=== PATIENT | female | born 1940 | race Caucasian/White ===

== ENCOUNTER 2020-01-07 18:52 | Inpatient (IN) | payer MEDICARE, BC ==
[2020-01-07] MEDS ORDERED: FLUMAZENIL INJ 0.5 MG/5 ML VIAL IV ONE (18:59)
[2020-01-07] MEDS ORDERED: ACTIVATED CHARCOAL 25 GM BOTTLE NG ONE (19:02)
[2020-01-07] MEDS ORDERED: RINGERS SOLUTION,LACTATED 1,000 ML IV PRN (19:05)
--- NOTE | 2020-01-07 19:12 | ER Document Report ---
ED General - General Chief Complaint: Overdose Stated Complaint: POSSIBLE OD Time Seen by Provider: 01/07/20 19:05 Primary Care Provider: WESLEY WRIGHT MD [Primary Care Provider] - Follow up as needed Mode of Arrival: Medic Information source: Patient, Emergency Med Personnel Notes: 79-year-old female arrives by EMS after she took all 60 tablets 1 mg of her lorazepam that was filled yesterday. She left a note that said I am out of your way to her Bin. Bin her reported to EMS that he was out of the house for 1-1/2 hours and when he came back he found her on the floor. Patient when asked advises that she did not know why she took so many pills. She was given Romazicon upon arrival 0.5 which caused her very somnolent state too quickly awakened to where she could talk to us and tell us her name and her 's name. She actually took her gown and pulled it with her right hand to over her chest. Patient saturations were found to be in the mid 80s per EMS upon their arrival. Her blood pressure was low per EMS and therefore she was not intubated according to EMS staff.. Prior to arrival. Rafa BARBER gave Romazicon IV and other staff members including respiratory secured this patient. Patient had NG tube placed. Behavioral health psychiatric to be consulted after admission. Also poison control needs to be called about this patient. Patient has a prior history of Xanax overdose in 2013 TRAVEL OUTSIDE OF THE [place] IN LAST 30 DAYS: No - HPI Onset: Just prior to arrival Onset/Duration: Sudden Quality of pain: No pain Severity: None Pain Level: Denies Associated symptoms: None Exacerbated by: Denies Relieved by: Denies Similar symptoms previously: No Recently seen / treated by doctor: Yes - Related Data Allergies/Adverse Reactions: erythromycin base Allergy (Mild, Verified 02/05/16 13:54) rash Penicillins Allergy (Mild, Verified 02/05/16 13:54) rash Sulfa (Sulfonamide Antibiotics) Allergy (Mild, Verified 02/05/16 13:54) rash Past Medical History - General Information source: Emergency Med Personnel - Social History Smoking Status: Unknown if Ever Smoked Cigarette use (# per day): No Chew tobacco use (# tins/day): No Smoking Education Provided: No Frequency of alcohol use: unknown Drug Abuse: Prescription drugs Lives with: Family Family History: Reviewed & Not Pertinent, Other - Unobtainable Patient has suicidal ideation: Yes Patient has homicidal ideation: No - Past Medical History Cardiac Medical History: Reports: Hx Hypertension Denies: Hx Atrial Fibrillation, Hx Congestive Heart Failure, Hx Coronary Artery Disease, Hx DVT, Hx Heart Attack, Hx Hypercholesterolemia, Hx Peripheral Vascular Disease, Hx Pulmonary Embolism Pulmonary Medical History: Denies: Hx Asthma Neurological Medical History: Denies: Hx Cerebrovascular Accident, Hx Seizures Endocrine Medical History: Denies: Hx Diabetes Mellitus Type 1, Hx Diabetes Mellitus Type 2, Hx Graves' Disease, Hx Hyperthyroidism, Hx Hypothyroidism GI Medical History: Denies: Hx Cirrhosis, Hx Crohn's Disease, Hx Diverticulitis, Hx Gastritis, Hx Gastroesophageal Reflux Disease, Hx Hepatitis, Hx Hiatal Hernia, Hx Irritable Bowel, Hx Liver Failure, Hx Ulcer, Hx Ulcerative Colitis Psychiatric Medical History: Reports: Hx Depression Infectious Medical History: Denies: Hx Hepatitis Past Surgical History: Reports: Hx Hysterectomy. Denies: Hx Mastectomy, Hx Open Heart Surgery, Hx Pacemaker - Immunizations Hx Pneumococcal Vaccination: 06/15/14 Review of Systems - Review of Systems Constitutional: No symptoms reported EENT: No symptoms reported Cardiovascular: No symptoms reported Respiratory: See HPI, Other - Patient appeared to have no respiratory distress upon arrival Gastrointestinal: No symptoms reported Genitourinary: No symptoms reported Female Genitourinary: No symptoms reported Musculoskeletal: No symptoms reported Skin: No symptoms reported Hematologic/Lymphatic: No symptoms reported Neurological/Psychological: See HPI, Confusion, Suicidal ideation Physical Exam - Vital signs Vitals: Resp 01/07/20 18:54 Interpretation: Normal - General General appearance: Lethargic - HEENT Head: Normocephalic, Atraumatic Eyes: Normal Pupils: PERRL Pharynx: Normal, Other - Patient open-mouth upon a command as she was getting NG tube. Neck: Normal - Respiratory Respiratory status: Depressed respirations Chest status: Nontender Breath sounds: Normal Chest palpation: Normal - Cardiovascular Rhythm: Regular Heart sounds: Normal auscultation Murmur: No - Abdominal Inspection: Normal Distension: No distension Bowel sounds: Normal Tenderness: Nontender Organomegaly: No organomegaly - Rectal Tenderness: No - Genitourinary External exam: Normal, Other - In trauma room with female nursing staff - Back Back: Normal - Extremities General upper extremity: Normal inspection, Nontender, Normal color, Normal ROM, Normal temperature General lower extremity: Normal inspection, Nontender, Normal color, Normal ROM, Normal temperature, Normal weight bearing. No: Niko's sign - Neurological Neuro grossly intact: Yes Cognition: Confused Cynthia Coma Scale Eye Opening: To Voice Cynthia Coma Scale Verbal: Confused Cynthia Coma Scale Motor: Obeys Commands Rowlett Coma Scale Total: 13 Speech: Normal Cranial nerves: Normal Cerebellar coordination: Normal Motor strength normal: LUE, RUE, LLE, RLE - Psychological Associated symptoms: Flat affect - Skin Skin Temperature: Warm Skin Moisture: Moist Course - Vital Signs Vital signs: Temp Pulse Resp BP Pulse Ox 18 127/61 H 97 01/07/20 19:20 01/07/20 19:20 01/07/20 19:20 - Laboratory Result Diagrams: 01/07/20 18:58 01/07/20 18:58 Laboratory results interpreted by me: 01/07/20 01/07/20 18:58 18:58 Hgb 11.1 L Hct 32.9 L BUN 27 H Alkaline Phosphatase 37 L Total Protein 5.8 L Albumin 3.4 L Salicylates < 1.0 L Acetaminophen < 10 L Critical Care Note - Critical Care Note Total time excluding time spent on procedures (mins): 90 Comments: I spoke with JAEL Rader around 2129 and he advises he will see the patient in room #17 for admission Discharge - Discharge Clinical Impression: Overdose of benzodiazepine Qualifiers: Encounter type: initial encounter Injury intent: intentional self-harm Qualified Code(s): T42.4X2A - Poisoning by benzodiazepines, intentional self- harm, initial encounter Condition: Fair Disposition: ADMITTED INPATIENT Admitting Provider: JAEL Rader Unit Admitted: ICU Referrals: WESLEY WRIGHT MD [Primary Care Provider] - Follow up as needed
[2020-01-07] MEDS: RINGERS SOLUTION,LACTATED 1,000 ML IV PRN (19:20)
[2020-01-07 19:25] LABS: ABSOLUTE MONOCYTES (AUTO) 0.7 10^3/uL (0.1-1.4); ABSOLUTE NEUT (AUTO) 4.5 10^3/uL (1.7-8.2); BASOPHILS % (AUTO) 0.5 % (0-2); HEMATOCRIT 32.9 % (36.0-47.0); HEMOGLOBIN 11.1 g/dL (12.0-15.5); LYMPHOCYTES % (AUTO) 16.1 % (13-45); MEAN CORPUSCULAR HEMOGLOBIN 28.7 pg (27.0-33.4); MEAN CORPUSCULAR HGB CONC 33.8 g/dL (32.0-36.0); MEAN CORPUSCULAR VOLUME 85 fl (80-97); PLATELET COUNT 208 10^3/uL (150-450); RED BLOOD COUNT 3.87 10^6/uL (3.72-5.28); RED CELL DISTRIBUTION WIDTH 13.4 % (11.5-14.0); SEGMENTED NEUTROPHILS % (AUTO) 72.4 % (42-78); TOTAL CELLS COUNTED % (AUTO) 100 %; WHITE BLOOD COUNT 6.3 10^3/uL (4.0-10.5)
--- NOTE | 2020-01-07 19:30 | RADIOLOGY REPORT (SQ) ---
EXAM DESCRIPTION: KUB/ABDOMEN (SINGLE VIEW) IMAGES COMPLETED DATE/TIME: 01/07/2020 7:14 pm REASON FOR STUDY: NG placement confirmation COMPARISON: None. NUMBER OF VIEWS: One view. TECHNIQUE: Supine radiographic image of the abdomen acquired. LIMITATIONS: Limited field of view and under exposure. FINDINGS: BOWEL GAS PATTERN: Normal bowel gas pattern. No dilated loops. CALCIFICATIONS: No suspicious calcifications. SOFT TISSUES: No gross mass or suggestion of organomegaly. HARDWARE: An apparent enteric tube is seen along the expected course of the distal esophagus with the tip and proximal port projecting subdiaphragmatically within the left upper quadrant. BONES: No acute fracture. No worrisome bone lesions. OTHER: No other significant finding. IMPRESSION: Enteric tube with the tip and proximal port projecting subdiaphragmatically within the l eft upper quadrant. TECHNICAL DOCUMENTATION: JOB ID: [id number] 2010 [employer]- All Rights Reserved Reading location - IP/workstation name: [email or web address]
[2020-01-07] MEDS ORDERED: ONDANSETRON HCL INJ/PF 4 MG/2 ML SDV ONE (19:31)
[2020-01-07 19:48] LABS: ACETAMINOPHEN < 10 ug/mL (10-30); ALBUMIN 3.4 g/dL (3.5-5.0); ALCOHOL < 10 mg/dL (NONE DETECTED); ALKALINE PHOSPHATASE 37 U/L (38-126); ANION GAP 5 (5-19); ASPARTATE AMINO TRANSFERASE 18 U/L (14-36); BILIRUBIN,TOTAL 0.5 mg/dL (0.2-1.3); BLOOD UREA NITROGEN 27 mg/dL (7-20); CALCIUM 9.6 mg/dL (8.4-10.2); CARBON DIOXIDE 29 mmol/L (22-30); CHLORIDE 106 mmol/L (98-107); GLUCOSE 106 mg/dL (75-110); POTASSIUM 3.8 mmol/L (3.6-5.0); SALICYLATE < 1.0 mg/dL (2.0-20.0); TOTAL PROTEIN 5.8 g/dL (6.3-8.2)
--- NOTE | 2020-01-07 19:54 | RADIOLOGY REPORT (SQ) ---
EXAM DESCRIPTION: CHEST SINGLE VIEW IMAGES COMPLETED DATE/TIME: 01/07/2020 7:42 pm REASON FOR STUDY: overdose with ng tube COMPARISON: None. EXAM PARAMETERS: NUMBER OF VIEWS: One view. TECHNIQUE: Single frontal radiographic view of the chest acquired. RADIATION DOSE: NA LIMITATIONS: None. FINDINGS: LUNGS AND PLEURA: Cannot exclude mild pulmonary edema. MEDIASTINUM AND HILAR STRUCTURES: No masses. Contour normal. HEART AND VASCULAR STRUCTURES: Heart normal in size. Normal vasculature. BONES: No acute findings. HARDWARE: NG tube extends well into the stomach to the greater curvature. OTHER: No other significant finding. IMPRESSION: NG tube as described. Cannot exclude mild pulmonary edema. TECHNICAL DOCUMENTATION: JOB ID: [id number] 2010 [employer]- All Rights Reserved Reading location - IP/workstation name: [email or web address]
[2020-01-07] MEDS ORDERED: ONDANSETRON HCL INJ/PF 4 MG/2 ML SDV IV ONE (21:05)
[2020-01-07 21:20] LABS: APPEARANCE,URINE CLEAR; BILIRUBIN,URINE NEGATIVE (NEGATIVE); COLOR,URINE YELLOW; GLUCOSE, URINE NEGATIVE (NEGATIVE); KETONES,URINE NEGATIVE (NEGATIVE); LEUKOCYTE ESTERASE,URINE NEGATIVE (NEGATIVE); NITRITE,URINE NEGATIVE (NEGATIVE); PROTEIN,URINE NEGATIVE (NEGATIVE); URINE SPECIFIC GRAVITY 1.013; UROBILINOGEN,URINE NEGATIVE mg/dL (<2.0)
[2020-01-07 21:41] LABS: URINE AMPHETAMINES SCREEN NEGATIVE; URINE BARBITURATES SCREEN NEGATIVE; URINE BENZODIAZEPINES SCREEN NEGATIVE; URINE COCAINE SCREEN NEGATIVE; URINE MARIJUANA (THC) SCREEN NEGATIVE; URINE METHADONE SCREEN NEGATIVE; URINE PHENCYCLIDINE SCREEN NEGATIVE
[2020-01-07 22:48] LABS: ARTERIAL BLOOD BASE EXCESS 0.4 mmol/L; ARTERIAL BLOOD H2CO3 1.41 mmol/L (1.05-1.35); ARTERIAL BLOOD HCO3 26.1 mmol/L (20-24); ARTERIAL BLOOD O2 SATURATION 96.9 % (94-98); ARTERIAL BLOOD PCO2 46.8 mmHg (35-45); ARTERIAL BLOOD PH 7.37 (7.35-7.45); ARTERIAL BLOOD PO2 93.6 mmHg (80-100); ARTERIAL BLOOD TOTAL CO2 27.6 mmol/L (21-25)
[2020-01-07 22:51] LABS: ARTERIAL BLOOD FIO2 4L
--- NOTE | 2020-01-08 01:03 | CRITICAL CARE ADMISSION REPORT ---
HPI Date:: 01/08/20 Time:: 00:15 Reason for ICU Reason:: Benzodiazepine overdose Admission Date/Time & PCP: Primary Care Provider: ZOË BENJAMIN DO HPI: 79-year-old female with a history of hypertension and multiple remote suicide attempts with both aspirin and Xanax. Patient now presents to ED after consuming 60-1mg pills of lorazepam. She was obtunded upon presentation to the ED, received Romazicon and charcoal. Patient became alert enough to communicate with the ED staff but shortly thereafter again became minimally responsive. She has been able to protect her airway and ABG shows only a very mild elevation in CO2 within the limits of normal. Patient is being admitted to the intensive care unit for monitoring given her poor mental status in the setting of benzodiazepine overdose. History obtained from:: Medical records - Diagnosis/Plan (1) Overdose of benzodiazepine Qualifiers: Encounter type: initial encounter Injury intent: intentional self-harm Qualified Code(s): T42.4X2A - Poisoning by benzodiazepines, intentional self- harm, initial encounter Is this a current diagnosis for this admission?: Yes Plan: Patient received Romazicon which was initially effective. * No indication for repeated dose at this time. Patient is protecting her airway. * Continue gentle hydration with LR. * Monitor mental status. Repeat dose of Romazicon if needed. (2) Suicide attempt by substance overdose Is this a current diagnosis for this admission?: Yes Plan: Patient ingested 60 mg of lorazepam prior to admission. * Continue close monitoring. * Given the patient's suicidal ideation and attempt, a sitter has been put in place. * Continue gentle hydration. Past Medical History Cardiac Medical History: Reports: Hypertension Denies: Atrial Fibrillation, Congestive Heart Failure, Coronary Artery Disease, DVT, Myocardial Infarction, Hyperlipidema, Peripheral Vascular Disease, Pulmonary Embolism Pulmonary Medical History: Denies: Asthma Neurological Medical History: Denies: Seizures Endocrine Medical History: Denies: Diabetes Mellitus Type 1, Diabetes Mellitus Type 2, Hyperthyroidism, Hypothyroidism GI Medical History: Denies: Cirrhosis, Crohn's Disease, Diverticulitis, Gastroesophageal Reflux Disease, Hepatitis, Hiatal Hernia, Ulcerative Colitis Psychiatric Medical History: Reports: Depression Hematology: Denies: Anemia, Sickle Cell Disease Past Surgical History Past Surgical History: Reports: Hysterectomy, Other - Cataract surgery Denies: Amputation, Mastectomy, Pacemaker Social/Family History - Social History Lives with: Family Smoking Status: Unknown if Ever Smoked Frequency of Alcohol Use: None Hx Recreational Drug Use: No Hx Prescription Drug Abuse: No - Medication/Allergies Home Medications: Citalopram Hydrobromide [Celexa 40 mg Tablet] 1 tab PO DAILY #30 tablet 06/15/14 Olanzapine [Zyprexa Zydis 5 mg Odt Tablet] 10 mg PO Q12 #120 tab.rapdis 06/15/14 Amlodipine Besylate [Norvasc 5 mg Tablet] 5 mg PO DAILY 02/05/16 Atorvastatin Calcium [Lipitor 20 mg Tablet] 20 mg PO QHS 02/05/16 Hydrochlorothiazide 12.5 mg PO DAILY 02/05/16 Lorazepam [Ativan 1 mg Tablet] 1 mg PO BID 02/05/16 Allergies/Adverse Reactions: erythromycin base Allergy (Mild, Verified 02/05/16 13:54) rash Penicillins Allergy (Mild, Verified 02/05/16 13:54) rash Sulfa (Sulfonamide Antibiotics) Allergy (Mild, Verified 02/05/16 13:54) rash Review of Systems ROS unobtainable: Due to mental status Physical Exam Vital Signs: Temp Pulse Resp BP Pulse Ox 34 H 149/78 H 96 01/07/20 22:30 01/07/20 22:15 01/07/20 22:30 Intake & Output 01/06/20 01/07/20 01/08/20 06:59 06:59 06:59 Intake Total 1000 Output Total 800 Balance 200 General appearance: PRESENT: no acute distress Head exam: PRESENT: atraumatic Eye exam: PRESENT: nystagmus, PERRLA Ear exam: PRESENT: normal external ear exam Mouth exam: PRESENT: dry mucosa Neck exam: ABSENT: JVD Respiratory exam: PRESENT: rhonchi - Upper airway rhonchi. Cardiovascular exam: PRESENT: RRR, +S1, +S2 Pulses: PRESENT: normal carotid pulses, normal radial pulses Vascular exam: PRESENT: normal capillary refill GI/Abdominal exam: PRESENT: normal bowel sounds, soft. ABSENT: tenderness Extremities exam: ABSENT: pedal edema Musculoskeletal exam: PRESENT: normal inspection Neurological exam: PRESENT: CN II-XII grossly intact. ABSENT: alert, awake, oriented to person, oriented to place, oriented to time, oriented to situation Psychiatric exam: PRESENT: suicidal ideation. ABSENT: agitated, anxious Skin exam: PRESENT: normal color Laboratory/Radiographs Laboratory Results: 01/07/20 18:58 01/07/20 18:58 01/07/20 01/07/20 01/07/20 18:58 18:58 21:00 WBC 6.3 RBC 3.87 Hgb 11.1 L Hct 32.9 L MCV 85 MCH 28.7 MCHC 33.8 RDW 13.4 Plt Count 208 Seg Neutrophils % 72.4 Carbonic Acid HCO3/H2CO3 Ratio ABG pH ABG pCO2 ABG pO2 ABG HCO3 ABG O2 Saturation ABG Base Excess FiO2 Sodium 139.5 Potassium 3.8 Chloride 106 Carbon Dioxide 29 Anion Gap 5 BUN 27 H Creatinine 0.87 Est GFR ( Amer) > 60 Glucose 106 Calcium 9.6 Total Bilirubin 0.5 AST 18 Alkaline Phosphatase 37 L Total Protein 5.8 L Albumin 3.4 L Urine Color YELLOW Urine Appearance CLEAR Urine pH 7.0 Ur Specific [place] 1.013 Urine Protein NEGATIVE Urine Glucose (UA) NEGATIVE Urine Ketones NEGATIVE Urine Blood NEGATIVE Urine Nitrite NEGATIVE Ur Leukocyte Esterase NEGATIVE Urine WBC (Auto) 0 Urine RBC (Auto) 0 01/07/20 22:30 WBC RBC Hgb Hct MCV MCH MCHC RDW Plt Count Seg Neutrophils % Carbonic Acid 1.41 H HCO3/H2CO3 Ratio 18:1 ABG pH 7.37 ABG pCO2 46.8 H ABG pO2 93.6 ABG HCO3 26.1 H ABG O2 Saturation 96.9 ABG Base Excess 0.4 FiO2 4L Sodium Potassium Chloride Carbon Dioxide Anion Gap BUN Creatinine Est GFR ( Amer) Glucose Calcium Total Bilirubin AST Alkaline Phosphatase Total Protein Albumin Urine Color Urine Appearance Urine pH Ur Specific [place] Urine Protein Urine Glucose (UA) Urine Ketones Urine Blood Urine Nitrite Ur Leukocyte Esterase Urine WBC (Auto) Urine RBC (Auto) Impressions: KUB X-Ray 01/07/20 00:00 IMPRESSION: Enteric tube with the tip and proximal port projecting subdiaphragmatically within the left upper quadrant. Chest X-Ray 01/07/20 19:22 IMPRESSION: NG tube as described. Cannot exclude mild pulmonary edema. All labs, radiographs, diagnostic studies and EKGs were personally reviewed: Yes In addition, reports of radiographic and diagnostic studies were read: Yes Critical Time Critical Time (minutes): 65 -: The care of a critically ill patient is dynamic. This note represents a static moment in the admission process. Orders and treatments may be given simultaneously and urgently, and time is not car sales representative of the treatment process. This patient requires Critical Care secondary to life threatening organ or limb dysfunction. Without Critical Care services, the patient is at risk for increased mortality and morbidity.
[2020-01-08] MEDS ORDERED: DEXTROSE 50%-WATER 25 GM/50 ML DISP.SYRIN IV PRN ×2 (01:04)
[2020-01-08] MEDS ORDERED: GLUCAGON,HUMAN RECOMB 1 MG INJ SUBCUT PRN (01:04)
[2020-01-08] MEDS ORDERED: DEXTROSE 40% GEL 15 GM TUBE PO PRN ×2 (01:04)
[2020-01-08] MEDS: RINGERS SOLUTION,LACTATED 1,000 ML IV PRN ×4 (02:02→22:04)
[2020-01-08 05:09] LABS: HEMATOCRIT 38.6 % (36.0-47.0); MEAN CORPUSCULAR HEMOGLOBIN 28.6 pg (27.0-33.4); MEAN CORPUSCULAR HGB CONC 33.6 g/dL (32.0-36.0); MEAN CORPUSCULAR VOLUME 85 fl (80-97); PLATELET COUNT 192 10^3/uL (150-450); RED BLOOD COUNT 4.54 10^6/uL (3.72-5.28); RED CELL DISTRIBUTION WIDTH 13.7 % (11.5-14.0); WHITE BLOOD COUNT 11.8 10^3/uL (4.0-10.5)
[2020-01-08] MEDS: HEPARIN SOD (PORCINE) 5,000 UNIT/ML 1 ML VIAL SUBCUT SCH ×3 (05:19→22:19)
[2020-01-08 05:21] LABS: ANION GAP 7 (5-19); BLOOD UREA NITROGEN 20 mg/dL (7-20); CALCIUM 9.5 mg/dL (8.4-10.2); CARBON DIOXIDE 26 mmol/L (22-30); CHLORIDE 104 mmol/L (98-107); GLUCOSE 118 mg/dL (75-110); PHOSPHORUS 2.5 mg/dL (2.5-4.5); POTASSIUM 3.7 mmol/L (3.6-5.0)
--- NOTE | 2020-01-08 11:17 | EKG REPORT ---
SEVERITY:- BORDERLINE ECG - SINUS RHYTHM BORDERLINE LEFT AXIS DEVIATION BORDERLINE PROLONGED QT INTERVAL : Confirmed by: Jakub Kim MD 08-Jan-2020 11:17:04
[2020-01-08] MEDS ORDERED: ACETAMINOPHEN 650 MG SUPP.RECT PR PRN (11:25)
--- NOTE | 2020-01-08 21:55 | RADIOLOGY REPORT (SQ) ---
CLINICAL INDICATION: new fever, sob. TECHNIQUE: A single portable AP view was obtained of the chest at 2130 hours. COMPARISON: January 07, 2020. FINDINGS: The cardiomediastinal silhouette is prominent but stable. The lungs again demonstrate bibasilar airspace disease and adjacent pleural reaction. Lungs are of lower volume.. No pneumothorax. Nasogastric tube remains in good position. IMPRESSION: Bibasilar airspace and pleural disease, similar to prior when accounting for lower lung volumes.
[2020-01-08] MEDS ORDERED: CLINDAMYCIN 600 MG/D5W RTU 1,200 MG/100 ML RTUPB IV ONE (21:57)
[2020-01-08] MEDS: CLINDAMYCIN PHOSPHATE 1,200 MG in DEXTROSE 5%-WATER 100 ML IV SCH (22:05)
[2020-01-09] MEDS ORDERED: RINGERS SOLUTION,LACTATED 1,000 ML IV PRN (04:14)
[2020-01-09 04:52] LABS: HEMATOCRIT 38.2 % (36.0-47.0); HEMOGLOBIN 13.1 g/dL (12.0-15.5); MEAN CORPUSCULAR HEMOGLOBIN 28.7 pg (27.0-33.4); MEAN CORPUSCULAR HGB CONC 34.2 g/dL (32.0-36.0); MEAN CORPUSCULAR VOLUME 84 fl (80-97); PLATELET COUNT 187 10^3/uL (150-450); RED BLOOD COUNT 4.56 10^6/uL (3.72-5.28); RED CELL DISTRIBUTION WIDTH 13.3 % (11.5-14.0); WHITE BLOOD COUNT 14.5 10^3/uL (4.0-10.5)
[2020-01-09 05:02] LABS: ALBUMIN 3.3 g/dL (3.5-5.0); ANION GAP 5 (5-19); BLOOD UREA NITROGEN 22 mg/dL (7-20); CALCIUM 9.3 mg/dL (8.4-10.2); CARBON DIOXIDE 31 mmol/L (22-30); CHLORIDE 100 mmol/L (98-107); GLUCOSE 102 mg/dL (75-110); PHOSPHORUS 2.4 mg/dL (2.5-4.5); POTASSIUM 3.3 mmol/L (3.6-5.0)
[2020-01-09] MEDS ORDERED: CLINDAMYCIN 600 MG/D5W RTU 1,200 MG/100 ML RTUPB IV ONE (05:02)
[2020-01-09] MEDS: CLINDAMYCIN PHOSPHATE 1,200 MG in DEXTROSE 5%-WATER 100 ML IV SCH ×3 (05:04→21:53)
[2020-01-09] MEDS: HEPARIN SOD (PORCINE) 5,000 UNIT/ML 1 ML VIAL SUBCUT SCH ×3 (05:05→21:48)
--- NOTE | 2020-01-09 10:15 | PDOC CRITICAL CARE PROG REPORT ---
General Date:: 01/09/20 ICU Day:: 2 Hospital Day:: 2 Resuscitation Status: Full Code Events in the past 12 to 24 Hours:: Awakened. Slightly groggy. Review of systems relevant to events:: Neurological, respiratory. Reason for ICU Addmission:: Benzodiazepine overdose, respiratory insufficiency - Medications: Medications reviewed and adjusted accordingly: Yes Vasopressors:: None Sedation:: None Physical Exam Vital Signs: Temp Pulse Resp BP Pulse Ox 100.2 F 78 24 H 134/67 H 96 01/09/20 06:00 01/08/20 19:20 01/09/20 06:01 01/09/20 06:01 01/09/20 06:01 Intake & Output 01/08/20 01/09/20 01/10/20 06:59 06:59 06:59 Intake Total 1999 2200 Output Total 1450 1345 Balance 550 855 Weight 65.8 kg 66.8 kg Weight/Height Weight 66.8 kg Height 5 ft 4 in General appearance: PRESENT: no acute distress, cooperative, thin Head exam: PRESENT: atraumatic, normocephalic Eye exam: PRESENT: conjunctiva pink, EOMI, PERRLA. ABSENT: scleral icterus Ear exam: PRESENT: normal external ear exam Mouth exam: PRESENT: moist, tongue midline Respiratory exam: PRESENT: clear to auscultation tiffanie, rhonchi - Mild rhonchi heard on R side. ABSENT: rales, wheezes Cardiovascular exam: PRESENT: RRR. ABSENT: diastolic murmur, rubs, systolic murmur GI/Abdominal exam: PRESENT: normal bowel sounds, soft. ABSENT: distended, guarding, mass, organolmegaly, rebound, tenderness Gentrourinary exam: PRESENT: indwelling catheter Extremities exam: PRESENT: full ROM. ABSENT: calf tenderness, clubbing, pedal edema Musculoskeletal exam: PRESENT: normal inspection Neurological exam: PRESENT: alert, awake, CN II-XII grossly intact, other - Somewhat sleepy Psychiatric exam: PRESENT: other - Still not voicing reasons for what happened the night of the . She is acting like a benzodiazepine OD. There are ativan pills missing at home but tox screen negative. Skin exam: PRESENT: dry, intact, warm. ABSENT: cyanosis, rash Tubes/Lines: PRESENT: Nasogastic Tube Laboratory/Radiographs Laboratory Results: 01/09/20 04:21 06/21/20 04:21 01/09/20 01/09/20 04:21 04:21 WBC 14.5 H RBC 4.56 Hgb 13.1 Hct 38.2 MCV 84 MCH 28.7 MCHC 34.2 RDW 13.3 Plt Count 187 Sodium 136.4 L Potassium 3.3 L Chloride 100 Carbon Dioxide 31 H Anion Gap 5 BUN 22 H Creatinine 0.52 Est GFR ( Amer) > 60 Glucose 102 Calcium 9.3 Phosphorus 2.4 L Albumin 3.3 L Impressions: KUB X-Ray 01/07/20 00:00 IMPRESSION: Enteric tube with the tip and proximal port projecting subdi aphragmatically within the left upper quadrant. Chest X-Ray 01/08/20 00:00 IMPRESSION: Bibasilar airspace and pleural disease, similar to prior when accounting for lower lung volumes. EKG: NSR All labs, radiographs, diagnostic studies and EKGs were personally reviewed: Yes In addition, reports of radiographic and diagnostic studies were read: Yes Assessment and Plan - Diagnosis (1) Acute respiratory insufficiency Is this a current diagnosis for this admission?: Yes Plan: This has resolved as she is 93% saturated on RA. (2) Overdose of benzodiazepine Qualifiers: Encounter type: initial encounter Injury intent: intentional self-harm Qualified Code(s): T42.4X2A - Poisoning by benzodiazepines, intentional self- harm, initial encounter Is this a current diagnosis for this admission?: Yes Plan: She had a proper response to romazican, there is ativan missing at home although tox screen is negative. (3) Suicide attempt by substance overdose Qualifiers: Encounter type: initial encounter Qualified Code(s): T65.92XA - Toxic effect of unspecified substance, intentional self-harm, initial encounter Is this a current diagnosis for this admission?: Yes Plan: She will need to see psychiatry before discharge. Plan Summary: Able to downgrade to medical floor. Critical Time Critical Time (minutes): 20 Level of Care: MEDICAL Anticipated discharge: Home Within: Other -: 1. The care of a critical patient is a dynamic process. This note is a title insurance sales representative synopsis but static in nature. The timeframe for treatments given in order is not necessarily the actual time these treatments may have been done. 2. This patient requires critical care secondary to ongoing requirements for therapy not offered or safe outside the critical care environment. Transfer to a lower level of care will result in altered life or limb morbidity and mortality. 3. Multidisciplinary rounds completed. 4. ABCDE bundle addressed.
--- NOTE | 2020-01-09 14:45 | PDOC PROGRESS REPORT ---
Subjective Progress Note for:: 01/09/20 Subjective:: Received signout from db2 dba. Patient was admitted a couple of days ago after presenting with toxic encephalopathy. She has a history of suicide attempt in the past with Xanax overdose. This time she was found by her unresponsive on the floor. Her bottle of Ativan which was recently filled was empty but had just been initially picked up about a day or 2 prior to presentation continue 60 1 mg tablets. She responded to Romazicon in the ER and also received charcoal. She was taken to the ICU for close monitoring of mental status but never required intubation. She is now more alert and downgraded to the medical floor. Also she was started on clindamycin in the ICU for suspected aspiration pneumonia after being noted to be spiking fevers. Patient admits to attempted to kill self but states that she took her entire bottle of lorazepam. Reason For Visit: BENZODIAZEPINE OVERDOSE Physical Exam Vital Signs: Temp Pulse Resp BP Pulse Ox 99.7 F 78 16 120/63 97 01/09/20 14:00 01/09/20 12:00 01/09/20 14:00 01/09/20 14:00 01/09/20 14:00 Intake & Output 01/08/20 01/09/20 01/10/20 06:59 06:59 06:59 Intake Total 2000 2200 150 Output Total 1450 1345 250 Balance 550 855 -100 Weight 65.8 kg 66.8 kg General appearance: PRESENT: no acute distress, cooperative, other - has some shivers Cardiovascular exam: PRESENT: RRR, +S1, +S2. ABSENT: tachycardia GI/Abdominal exam: PRESENT: hyperactive bowel sounds, soft. ABSENT: rebound, rigid, tenderness Neurological exam: PRESENT: alert, awake, oriented to person, oriented to place, oriented to time, oriented to situation Psychiatric exam: ABSENT: agitated, anxious Results Laboratory Results: 01/09/20 04:21 01/09/20 04:21 01/09/20 01/09/20 04:21 04:21 WBC 14.5 H RBC 4.56 Hgb 13.1 Hct 38.2 MCV 84 MCH 28.7 MCHC 34.2 RDW 13.3 Plt Count 187 Sodium 136.4 L Potassium 3.3 L Chloride 100 Carbon Dioxide 31 H Anion Gap 5 BUN 22 H Creatinine 0.52 Est GFR ( Amer) > 60 Glucose 102 Calcium 9.3 Phosphorus 2.4 L Albumin 3.3 L Impressions: KUB X-Ray 01/07/20 00:00 IMPRESSION: Enteric tube with the tip and proximal port projecting subdiaphragmatically within the left upper quadrant. Chest X-Ray 01/08/20 00:00 IMPRESSION: Bibasilar airspace and pleural disease, similar to prior when accounting for lower lung volumes. Assessment and Plan - Diagnosis (1) Acute respiratory failure Qualifiers: Respiratory failure complication: unspecified whether with hypoxia or hypercapnia Qualified Code(s): J96.00 - Acute respiratory failure, unspecified whether with hypoxia or hypercapnia Is this a current diagnosis for this admission?: Yes (2) Overdose of benzodiazepine Qualifiers: Encounter type: initial encounter Injury intent: intentional self-harm Qualified Code(s): T42.4X2A - Poisoning by benzodiazepines, intentional self- harm, initial encounter Is this a current diagnosis for this admission?: Yes (3) Suicide attempt by substance overdose Qualifiers: Encounter type: initial encounter Qualified Code(s): T65.92XA - Toxic effect of unspecified substance, intentional self-harm, initial encounter Is this a current diagnosis for this admission?: Yes (4) Aspiration pneumonia Is this a current diagnosis for this admission?: Yes (5) Fever Is this a current diagnosis for this admission?: Yes - Plan Summary Summary: 01/09/2020 Received signout from db2 dba. Patient was admitted a couple of days ago after presenting with toxic encephalopathy. She has a history of suicide attempt in the past with Xanax overdose. This time she was found by her unresponsive on the floor. Her bottle of Ativan which was recently filled was empty but had just been initially picked up about a day or 2 prior to presentation continue 60 1 mg tablets. She responded to Romazicon in the ER and also received charcoal. She was taken to the ICU for close monitoring of mental status but never required intubation. She is now more alert and downgraded to the medical floor. Also she was started on clindamycin in the ICU for suspected aspiration pneumonia after being noted to be spiking fevers. Continue clindamycin for suspected aspiration pneumonia. Patient admits to suicidal attempt lorazepam overdose. However urine drug screen is negative. I will repeat UDS. Currently she has not received any narcotics so far. Monitor mental status closely. Patient will be maintained on IVC Awaiting psych evaluation. Consult has already been ordered. Suicide precautions - Time Time Spent with patient: 15-24 minutes
[2020-01-09] MEDS ORDERED: ACETAMINOPHEN 325 MG TABLET ONE (14:55)
[2020-01-09] MEDS ORDERED: ACETAMINOPHEN 325 MG TABLET PO PRN (14:56)
[2020-01-09] MEDS: AMLODIPINE BESYLATE 5 MG TABLET PO SCH (15:02)
[2020-01-09 15:32] LABS: URINE AMPHETAMINES SCREEN NEGATIVE; URINE BARBITURATES SCREEN NEGATIVE; URINE BENZODIAZEPINES SCREEN NEGATIVE; URINE COCAINE SCREEN NEGATIVE; URINE MARIJUANA (THC) SCREEN NEGATIVE; URINE METHADONE SCREEN NEGATIVE; URINE PHENCYCLIDINE SCREEN NEGATIVE
[2020-01-09] MEDS: ATORVASTATIN CALCIUM 20 MG TABLET PO SCH (18:22)
--- NOTE | 2020-01-09 22:53 | PDOC CONSULTATION ---
Consultation-Blank Consultation: Met with Patient at request of her attending Physician. Patient was mildly cooperative, stating she took the "whole bottle of pills" because she has "problems." Patient would not disclose what those problems were but answered "yes" to some of those problems being "family, , and you." She indicated she did not follow up outpatient from previous visits. She stated her is not supportive, nor are her children, one of which lives directly behind her and another that lives 5 miles away. She reported she has never tried to talk with anyone about her thoughts of suicide and stated her children specifically tell her they do not want to talk with her about her attempts. Patient does not offer any information and has to be prompted and asked directly many questions before she will answer. She demonstrates very slow processing except when advised she is placed in full IVC affidavit and behavioral health will be seeking inpatient psychiatric placement upon medical clearance. Patient begins immediately coughing and states "I'm not going." When advised there is no choice she has in the process, and what IVC means, Patient immediately responds, "I'm not going." She is again informed she lost her decision making ability in this process hen she chose to overdose on the medications, and historically has refused to follow up outpatient or engage appropriately in consults. Patient was advised of the process, how long it could take, and that she would be informed once a placement was located. Both the attending nurse and the PCT (sitter) assigned to the Patient were advised to watch Patient carefully as she is upset about being IVC and placement being sought and she has a history of suicide attempts when left alone. Patient was alert, oriented to person, place, time, and circumstance. Mood was dysthymic and moderately uncooperative. She would not answer regarding suicidal or homicidal ideation intent or plan. She would not answer regarding psychotic processes. Thought processes were slow. Conversational speech was notable for apoverty of speech, no prosody, one word answers, and soft tone. Eye contact was poor. Intellectual abilities were estimated within the average range. Attention and concentration was poor. Insight, judgment, and impulse control was impaired. Medication Recommendations from Consulting Psychiatric Provider include: 1. Decrease Celexa to 20 mg daily x5 days then discontinue 2. Add Depakote 250 mg by mouth twice per day 3. Discontinue Home Medication 20 mg by mouth daily Clinical Impressions: Personality Traits-Cluster B Depression Attention Seeking Impression/Plan: Patient is placed on Full IVC/First Eval completed and placed on chart. [facility] Patient is moderately uncooperative during evaluation and many questions were answered with "I don't know." She indicated she took a full bottle of Ativan, however, review of her toxicology screen was negative both times it was completed. Patient became upset and argumentative when advised placement would be sought when she was medically clear, stating "I'm not going." At this time, Patient will be best suited for a course of inpatient psychiatric care following medical clearance. She may also benefit from an updated Head CT since her last Head CT was in 2013 with language consistent with neurodegenerative processes. This will be important for medication recommendation purposes. Thank you for this referral and please contact the behavioral health team at [phone] for any questions.
[2020-01-09] MEDS ORDERED: MELATONIN 5 MG TABLET PO ONE (23:30)
[2020-01-10 06:31] LABS: HEMOGLOBIN 11.1 g/dL (12.0-15.5); MEAN CORPUSCULAR HEMOGLOBIN 29.1 pg (27.0-33.4); MEAN CORPUSCULAR HGB CONC 34.8 g/dL (32.0-36.0); MEAN CORPUSCULAR VOLUME 84 fl (80-97); PLATELET COUNT 180 10^3/uL (150-450); RED BLOOD COUNT 3.82 10^6/uL (3.72-5.28); RED CELL DISTRIBUTION WIDTH 13.5 % (11.5-14.0); WHITE BLOOD COUNT 9.5 10^3/uL (4.0-10.5)
[2020-01-10] MEDS: CLINDAMYCIN PHOSPHATE 1,200 MG in DEXTROSE 5%-WATER 100 ML IV SCH (06:54)
[2020-01-10] MEDS: HEPARIN SOD (PORCINE) 5,000 UNIT/ML 1 ML VIAL SUBCUT SCH ×3 (06:54→22:59)
[2020-01-10 07:04] LABS: BLOOD UREA NITROGEN 26 mg/dL (7-20); CALCIUM 8.8 mg/dL (8.4-10.2); CARBON DIOXIDE 29 mmol/L (22-30); CHLORIDE 100 mmol/L (98-107); GLUCOSE 105 mg/dL (75-110)
[2020-01-10 07:43] LABS: ANION GAP 4 (5-19)
[2020-01-10] MEDS: POTASSI CL 20 MEQ/50 ML RIDER 20 MEQ/50 ML RTUPB IV SCH ×2 (08:33→13:50)
[2020-01-10] MEDS ORDERED: POTASSIUM CHLORIDE 10 MEQ TABLET.ER PO ONE ×2 (08:45→22:00)
[2020-01-10] MEDS ORDERED: PHOSPHORUS #1 250 MG TABLET PO ONE (09:00)
--- NOTE | 2020-01-10 09:45 | RADIOLOGY REPORT (SQ) ---
EXAM DESCRIPTION: CT HEAD WITHOUT IMAGES COMPLETED DATE/TIME: 01/10/2020 8:25 am REASON FOR STUDY: dementia evaluation COMPARISON: CT of the head without contrast from 06/12/2014. TECHNIQUE: Axial images acquired through the brain without intravenous contrast. Images reviewed wi th bone, brain and subdural windows. Additional sagittal and coronal reconstructions were generated. Images stored on PACS. All CT scanners at this facility use dose modulation, iterative reconstruction, and/or weight based d osing when appropriate to reduce radiation dose to as low as reasonably achievable (ALARA). [facility]: Dose Right [facility]: CareDose [facility]: Dose Right [facility]: Teradose 4D [facility]: Smart [employer] RADIATION DOSE: CT Rad equipment meets quality standard of care and radiation dose reduction techniq ues were employed. CTDIvol: 48.6 mGy. DLP: 929 mGy-cm. LIMITATIONS: None. FINDINGS: There is an hyperdense lesion in the left parietal region along the falx cerebri that abilio ures 13 mm in transverse diameter, 13 mm in AP diameter and 18 mm in craniocaudal diameter ; the lesi on has increased in size from 06/12/2014 and exerts no appreciable mass effect upon the adjacent brai n parenchyma. There is also no appreciable vasogenic edema. The confluent areas of low-attenuation throughout the supratentorial periventricular and subcortical white matter are nonspecific but likely represent the sequela of chronic microvascular ischemia. The re is no acute intracranial hemorrhage, vascular territorial infarct, extra-axial fluid collection or midline shift. The benton-white matter differentiation is preserved. The caliber of the ventricles i s concordant with the degree of sulcation. There is no effacement of the cerebral sulci or basal sub arachnoid cisterns. The globes are aphakic. The orbits are intact. There is partial opacification of the ethmoid air ce lls. The paranasal sinuses and the mastoid air cells are clear. There is no fracture of the calvari um. IMPRESSION: 1. Hyperdense lesion in the left parietal region along the falx cerebri measures 13 mm i n transverse diameter, 13 mm in AP diameter and 18 mm in craniocaudal diameter ; the lesion has incre ased in size from 06/12/2014 and exerts no appreciable mass effect upon the adjacent brain parenchyma . The lesion is favored to represent a meningioma - consider correlation with a non-emergent contras t-enhanced MRI. 2. Sequela of chronic microvascular ischemia. EVIDENCE OF ACUTE STROKE: NO. COMMENT: Quality ID # [id number]: Final reports with documentation of one or more dose reduction techniques (e.g., Automated exposure control, adjustment of the mA and/or kV according to patient size, use of iterative reconstruction technique) TECHNICAL DOCUMENTATION: JOB ID: [id number] 2010 [employer]- All Rights Reserved Reading location - IP/workstation name: [email or web address]
[2020-01-10] MEDS ORDERED: CITALOPRAM HYDROBROMIDE 20 MG TABLET PO SCH (10:00)
--- NOTE | 2020-01-10 11:37 | PDOC PROGRESS REPORT ---
Subjective Progress Note for:: 01/10/20 Subjective:: Patient denies any sob, cough or chest pain. Reason For Visit: BENZODIAZEPINE OVERDOSE Physical Exam Vital Signs: Temp Pulse Resp BP Pulse Ox 98.3 F 76 20 122/54 L 97 01/10/20 08:00 01/10/20 08:00 01/10/20 08:00 01/10/20 08:00 01/10/20 08:00 Intake & Output 01/09/20 01/10/20 01/11/20 06:59 06:59 06:59 Intake Total 2200 626 Output Total 1345 600 Balance 855 26 Weight 66.8 kg 66.9 kg General appearance: PRESENT: no acute distress, cooperative, well-nourished. ABSENT: mild distress, morbidly obese Head exam: PRESENT: normocephalic Neck exam: ABSENT: JVD Respiratory exam: PRESENT: clear to auscultation tiffanie, unlabored. ABSENT: tachypnea, wheezes Cardiovascular exam: PRESENT: RRR, +S1, +S2. ABSENT: tachycardia GI/Abdominal exam: PRESENT: soft. ABSENT: rebound, rigid, tenderness Neurological exam: PRESENT: alert, awake, oriented to person, oriented to place, oriented to time Results Laboratory Results: 01/10/20 05:51 01/10/20 05:51 01/10/20 01/10/20 05:51 05:51 WBC 9.5 RBC 3.82 Hgb 11.1 L Hct 32.0 L MCV 84 MCH 29.1 MCHC 34.8 RDW 13.5 Plt Count 180 Sodium 133.1 L Potassium 3.0 L* Chloride 100 Carbon Dioxide 29 Anion Gap 4 L BUN 26 H Creatinine 0.65 Est GFR ( Amer) > 60 Glucose 105 Calcium 8.8 Magnesium 2.0 Impressions: KUB X-Ray 01/07/20 00:00 IMPRESSION: Enteric tube with the tip and proximal port projecting subdiaphragmatically within the left upper quadrant. Chest X-Ray 01/08/20 00:00 IMPRESSION: Bibasilar airspace and pleural disease, similar to prior when accounting for lower lung volumes. Head CT 01/10/20 00:00 IMPRESSION: 1. Hyperdense lesion in the left parietal region along the falx cerebri measures 13 mm in transverse diameter, 13 mm in AP diameter and 18 mm in craniocaudal diameter ; the lesion has increased in size from 06/12/2014 and exerts no appreciable mass effect upon the adjacent brain parenchyma. The lesion is favored to represent a meningioma - consider correlation with a non- emergent contrast-enhanced MRI. 2. Sequela of chronic microvascular ischemia. EVIDENCE OF ACUTE STROKE: NO. Assessment and Plan - Diagnosis (1) Acute respiratory failure Qualifiers: Respiratory failure complication: unspecified whether with hypoxia or hypercapnia Qualified Code(s): J96.00 - Acute respiratory failure, unspecified whether with hypoxia or hypercapnia Is this a current diagnosis for this admission?: Yes (2) Overdose of benzodiazepine Qualifiers: Encounter type: initial encounter Injury intent: intentional self-harm Qualified Code(s): T42.4X2A - Poisoning by benzodiazepines, intentional self- harm, initial encounter Is this a current diagnosis for this admission?: Yes (3) Suicide attempt by substance overdose Qualifiers: Encounter type: initial encounter Qualified Code(s): T65.92XA - Toxic effect of unspecified substance, intentional self-harm, initial encounter Is this a current diagnosis for this admission?: Yes (4) Aspiration pneumonia Is this a current diagnosis for this admission?: Yes (5) Brain lesion Is this a current diagnosis for this admission?: Yes - Plan Summary Summary: 01/09/2020 Received signout from cement block maker. Patient was admitted a couple of days ago after presenting with toxic encephalopathy. She has a history of suicide attempt in the past with Xanax overdose. This time she was found by her unresponsive on the floor. Her bottle of Ativan which was recently filled was empty but had just been initially picked up about a day or 2 prior to presentation continue 60 1 mg tablets. She responded to Romazicon in the ER and also received charcoal. She was taken to the ICU for close monitoring of mental status but never required intubation. She is now more alert and downgraded to the medical floor. Also she was started on clindamycin in the ICU for suspected aspiration pneumonia after being noted to be spiking fevers. Continue clindamycin for suspected aspiration pneumonia. Patient admits to suicidal attempt lorazepam overdose. However urine drug screen is negative. I will repeat UDS. Currently she has not received any narcotics so far. Monitor mental status closely. Patient will be maintained on IVC Awaiting psych evaluation. Consult has already been ordered. Suicide precautions 01/10/2020 Patient is doing better today. Fevers have stopped. On clindamycin IV for aspiration pneumonia in ICU which I will change to oral. Day 2. Evaluated by psychiatry who recommends decreasing citalopram to 20 mg daily for 5 days then stopping and placing on Depakote 250 mg twice a day. I have entered these orders. Brain lesion on head CT is hyperdense 1.3 x 1.3 x 1.8 cm in left parietal without any vasogenic edema or mass-effect. I have discussed findings with radiologist informs me that it seems the lesion has been present since CT on 2013 at which time it was about 0.8 cm and the likely differential is a meningioma. It is likely that this lesion is not contributing to patient's mental status. However I will consult oncology to weigh in on this. Psych also recommends placement at inpatient psychiatric facility. Plan discussed with family we have updated about the brain CT findings. - Time Time Spent with patient: 15-24 minutes
[2020-01-10] MEDS: HYDROCHLOROTHIAZIDE 12.5 MG TABLET PO SCH (11:47)
[2020-01-10] MEDS: AMLODIPINE BESYLATE 5 MG TABLET PO SCH (11:47)
[2020-01-10] MEDS: CLINDAMYCIN HCL 150 MG CAPSULE PO SCH ×2 (13:50→22:58)
[2020-01-10] MEDS: ATORVASTATIN CALCIUM 20 MG TABLET PO SCH (17:14)
[2020-01-10 17:32] LABS: ANION GAP 5 (5-19); BLOOD UREA NITROGEN 16 mg/dL (7-20); CALCIUM 9.1 mg/dL (8.4-10.2); CARBON DIOXIDE 29 mmol/L (22-30); CHLORIDE 104 mmol/L (98-107); GLUCOSE 121 mg/dL (75-110)
[2020-01-10 17:41] LABS: POTASSIUM 4.6 mmol/L (3.6-5.0)
--- NOTE | 2020-01-10 19:14 | PSYCHOLOGICAL NOTE ---
Psych Note - Psych Note Date seen by psych provider: 01/10/20 Psych Note: Reason for Consult: reported intentional overdose Chart review conducted: Head CT 01/10/20 00:00 IMPRESSION: 1. Hyperdense lesion in the left parietal region along the falx cerebri measures 13 mm in transverse diameter, 13 mm in AP diameter and 18 mm in craniocaudal diameter ; the lesion has increased in size from 06/12/2014 and exerts no appreciable mass effect upon the adjacent brain parenchyma. The lesion is favored to represent a meningioma - consider correlation with a non- emergent contrast-enhanced MRI. 2. Sequela of chronic microvascular ischemia. Medication Recommendations from Consulting Psychiatric Provider include: 1. Continue Celexa 20 mg daily;4 more days then discontinue 2. Continue Depakote 250 mg by mouth twice per day 3. Discontinue Home Medication Zyprexa and Ativan Clinical Impressions: Personality Traits-Cluster B Depression Attention Seeking Impression/Plan: Patient is under Full IVC. She reported she took a full bottle of Ativan; however, review of her toxicology screen was negative both times it was completed. Patient became upset and argumentative when advised placement would be sought when she was medically clear, stating "I'm not going." At this time, it is recommended for the patient to go inpatient psychiatric care following medical clearance. Dr. Xiao was consulted on the care and management of this patient; attending physician is in agreement with recommendations and disposition. Thank you for this referral and please contact the behavioral health team at [phone] for any questions.
[2020-01-10] MEDS: MELATONIN 5 MG TABLET PO SCH (22:57)
[2020-01-10] MEDS: DIVALPROEX SODIUM 250 MG TAB.SR.24H PO SCH (22:58)
[2020-01-11] MEDS: MELATONIN 5 MG TABLET PO PRN (01:49)
[2020-01-11] MEDS: HEPARIN SOD (PORCINE) 5,000 UNIT/ML 1 ML VIAL SUBCUT SCH ×3 (08:39→21:48)
[2020-01-11] MEDS: AMLODIPINE BESYLATE 5 MG TABLET PO SCH (09:24)
[2020-01-11] MEDS: HYDROCHLOROTHIAZIDE 12.5 MG TABLET PO SCH (09:24)
[2020-01-11] MEDS: DIVALPROEX SODIUM 250 MG TAB.SR.24H PO SCH ×2 (09:25→21:48)
[2020-01-11] MEDS: CLINDAMYCIN HCL 150 MG CAPSULE PO SCH ×3 (09:25→17:14)
[2020-01-11] MEDS: CITALOPRAM HYDROBROMIDE 20 MG TABLET PO SCH (09:25)
--- NOTE | 2020-01-11 12:47 | PDOC CONSULTATION ---
Consultation Consult Date: 01/11/20 Provider Consulted: SERGIO MORTON Consult reason:: Hematology/Oncology consultation was requested for a patient with abnormal brain scan. History of Present Illness Admission Date/PCP: 01/07/20 21:56 ZOË BENJAMIN DO History of Present Illness: HANNA CHESTER is a 79 year old female who states that she took too many pills. However, she states that she is "not going to any facility. I am going home with my ." More than this, she really cannot tell me. She does not know why she took the pills. She denies any medical complaints today, including c hest pain, headache, dyspnea. According to her medical records, she was found unconscious next to an empty bottle of ativan. She has a history of xanax overdose in 2013. Past Medical History Cardiac Medical History: Reports: Hypertension Denies: Atrial Fibrillation, Congestive Heart Failure, Coronary Artery Disease, DVT, Myocardial Infarction, Hyperlipidema, Peripheral Vascular Disease, Pulmonary Embolism Pulmonary Medical History: Denies: Asthma Neurological Medical History: Denies: Seizures Endocrine Medical History: Denies: Diabetes Mellitus Type 1, Diabetes Mellitus Type 2, Hyperthyroidism, Hypothyroidism GI Medical History: Denies: Cirrhosis, Crohn's Disease, Diverticulitis, Gastroesophageal Reflux Disease, Hepatitis, Hiatal Hernia, Ulcerative Colitis Psychiatric Medical History: Reports: Depression Hematology: Denies: Anemia, Sickle Cell Disease Past Surgical History Past Surgical History: Reports: Hysterectomy, Other - Cataract surgery Denies: Amputation, Mastectomy, Pacemaker Social History Lives with: Family Smoking Status: Unknown if Ever Smoked Frequency of Alcohol Use: None Hx Recreational Drug Use: No Hx Prescription Drug Abuse: No - Advance Directive Resuscitation Status: Full Code Family History Family History: Other - Unobtainable Parental Family History Reviewed: No - Patient did not know her family history. Children Family History Reviewed: No Sibling(s) Family History Reviewed.: No Medication/Allergy Home Medications: Amlodipine Besylate [Norvasc 5 mg Tablet] 5 mg PO DAILY 02/05/16 Atorvastatin Calcium [Lipitor 20 mg Tablet] 20 mg PO QPM 02/05/16 Hydrochlorothiazide 12.5 mg PO QAM 02/05/16 Lorazepam [Ativan 1 mg Tablet] 1 mg PO BID 02/05/16 Citalopram Hydrobromide [Celexa 40 mg Tablet] 40 mg PO DAILY 01/08/20 Olanzapine [Zyprexa] 20 mg PO DAILY 01/08/20 Allergies/Adverse Reactions: erythromycin base Allergy (Mild, Verified 02/05/16 13:54) rash Penicillins Allergy (Mild, Verified 02/05/16 13:54) rash Sulfa (Sulfonamide Antibiotics) Allergy (Mild, Verified 02/05/16 13:54) rash Review of Systems Constitutional: ABSENT: fever(s), headache(s) Eyes: ABSENT: visual disturbances Ears: ABSENT: hearing changes Cardiovascular: ABSENT: chest pain Respiratory: ABSENT: dyspnea Gastrointestinal: ABSENT: constipation, nausea Genitourinary: ABSENT: dysuria Integumentary: ABSENT: rash Psychiatric: PRESENT: anxiety, depression Physical Exam Vital Signs: Temp Pulse Resp BP Pulse Ox 98.4 F 93 16 142/69 H 94 01/11/20 11:34 01/11/20 11:34 01/11/20 11:34 01/11/20 11:34 01/11/20 11:34 Intake & Output 01/10/20 01/11/20 01/12/20 06:59 06:59 06:59 Intake Total 626 3383 Output Total 600 525 Balance 26 2858 Weight 66.9 kg 70 kg General appearance: PRESENT: no acute distress, well-developed, well-nourished Exam: 79 year old female. Head exam: PRESENT: atraumatic, normocephalic Eye exam: PRESENT: EOMI Mouth exam: PRESENT: tongue midline Neck exam: ABSENT: lymphadenopathy, tenderness Respiratory exam: PRESENT: clear to auscultation tiffanie, unlabored Cardiovascular exam: PRESENT: RRR GI/Abdominal exam: PRESENT: soft. ABSENT: tenderness Extremities exam: ABSENT: pedal edema Musculoskeletal exam: PRESENT: normal inspection Neurological exam: PRESENT: altered, awake Skin exam: PRESENT: normal color Results Laboratory Results: 01/10/20 05:51 01/10/20 16:55 01/10/20 16:55 Sodium 138.3 Potassium 4.6 D Chloride 104 Carbon Dioxide 29 Anion Gap 5 BUN 16 Creatinine 0.90 Est GFR ( Amer) > 60 Glucose 121 H Calcium 9.1 01/08/20 22:20 Tracheal Aspirate Gram Stain - Final 01/08/20 22:20 Tracheal Aspirate Sputum Culture - Final C.albicans/C.dubliniensis Normal Clover Impressions: KUB X-Ray 01/07/20 00:00 IMPRESSION: Enteric tube with the tip and proximal port projecting subdiaphragmatically within the left upper quadrant. Chest X-Ray 01/08/20 00:00 IMPRESSION: Bibasilar airspace and pleural disease, similar to prior when accounting for lower lung volumes. Head CT 01/10/20 00:00 IMPRESSION: 1. Hyperdense lesion in the left parietal region along the falx cerebri measures 13 mm in transverse diameter, 13 mm in AP diameter and 18 mm in craniocaudal diameter ; the lesion has increased in size from 06/12/2014 and exerts no appreciable mass effect upon the adjacent brain parenchyma. The lesion is favored to represent a meningioma - consider correlation with a non- emergent contrast-enhanced MRI. 2. Sequela of chronic microvascular ischemia. EVIDENCE OF ACUTE STROKE: NO. Status: Image reviewed by me Assessment & Plan - Diagnosis (1) Brain lesion Is this a current diagnosis for this admission?: Yes Plan: According to radiologist, this lesion appears to be a meningioma and has been present for at least 5 years. There is no mass effect. Although it is difficult to say for sure if this is affecting her mental state, if further r ecommendations are needed, I would see if a neurosurgeon would be able to review these films and make recommendations. When I discussed this with the patient, she states that she did not want me to ask any other doctors, because she is not going to do anything about it anyway. (2) Suicide attempt by substance overdose Qualifiers: Encounter type: initial encounter Qualified Code(s): T65.92XA - Toxic effect of unspecified substance, intentional self-harm, initial encounter Is this a current diagnosis for this admission?: Yes Plan: Psychiatry following. - Plan Summary Plan Summary: I'm afraid I don't have much to add in this situation. I do not believe she would benefit from any steroids nor do I believe this should be treated aggressively. Please call me if needed, but I will follow from a distance.
--- NOTE | 2020-01-11 13:04 | PDOC PROGRESS REPORT ---
Subjective Progress Note for:: 01/11/20 Subjective:: No adverse events overnight. No new complaints. The only thing she says to me is "I am not going to rehab." She said that to me 4 times while I was in the room with her. Vital signs have been stable. She said she had a little bit of breakfast today but does not have much of an appetite. Reason For Visit: BENZODIAZEPINE OVERDOSE Physical Exam Vital Signs: Temp Pulse Resp BP Pulse Ox 98.4 F 93 16 142/69 H 94 01/11/20 11:34 01/11/20 11:34 01/11/20 11:34 01/11/20 11:34 01/11/20 11:34 Intake & Output 01/10/20 01/11/20 01/12/20 06:59 06:59 06:59 Intake Total 626 3383 Output Total 600 525 Balance 26 2858 Weight 66.9 kg 70 kg General appearance: PRESENT: no acute distress, disheveled Respiratory exam: PRESENT: clear to auscultation tiffanie, symmetrical, unlabored. ABSENT: accessory muscle use, chest wall tenderness, crackles, prolonged expiratory phas, tachypnea, wheezes Cardiovascular exam: PRESENT: RRR, +S1, +S2 Pulses: PRESENT: normal carotid pulses Vascular exam: PRESENT: normal capillary refill GI/Abdominal exam: PRESENT: normal bowel sounds, soft. ABSENT: distended, guarding, rebound, tenderness Extremities exam: ABSENT: clubbing, pedal edema Musculoskeletal exam: PRESENT: normal inspection. ABSENT: deformity Neurological exam: PRESENT: alert, awake, oriented to person, oriented to place Psychiatric exam: PRESENT: agitated Skin exam: PRESENT: dry, warm Results Laboratory Results: 01/10/20 05:51 01/10/20 16:55 01/10/20 16:55 Sodium 138.3 Potassium 4.6 D Chloride 104 Carbon Dioxide 29 Anion Gap 5 BUN 16 Creatinine 0.90 Est GFR ( Amer) > 60 Glucose 121 H Calcium 9.1 01/08/20 22:20 Tracheal Aspirate Gram Stain - Final 01/08/20 22:20 Tracheal Aspirate Sputum Culture - Final C.albicans/C.dubliniensis Normal Clovre Impressions: KUB X-Ray 01/07/20 00:00 IMPRESSION: Enteric tube with the tip and proximal port projecting torres bdiaphragmatically within the left upper quadrant. Chest X-Ray 01/08/20 00:00 IMPRESSION: Bibasilar airspace and pleural disease, similar to prior when accounting for lower lung volumes. Head CT 01/10/20 00:00 IMPRESSION: 1. Hyperdense lesion in the left parietal region along the falx cerebri measures 13 mm in transverse diameter, 13 mm in AP diameter and 18 mm in craniocaudal diameter ; the lesion has increased in size from 06/12/2014 and exerts no appreciable mass effect upon the adjacent brain parenchyma. The lesion is favored to represent a meningioma - consider correlation with a non- emergent contrast-enhanced MRI. 2. Sequela of chronic microvascular ischemia. EVIDENCE OF ACUTE STROKE: NO. Assessment and Plan - Diagnosis (1) Aspiration pneumonia Qualifiers: Aspiration pneumonia type: due to vomit Laterality: right Lung location: lower lobe of lung Qualified Code(s): J69.0 - Pneumonitis due to inhalation of food and vomit Is this a current diagnosis for this admission?: Yes Plan: She was started on clindamycin (2) Brain lesion Is this a current diagnosis for this admission?: Yes Plan: Looks like a meningioma, no further work-up needed, it has been there for years (3) Fever Qualifiers: Fever type: due to other condition Qualified Code(s): R50.81 - Fever presenting with conditions classified elsewhere Is this a current diagnosis for this admission?: Yes Plan: Resolved (4) Overdose of benzodiazepine Qualifiers: Encounter type: initial encounter Injury intent: intentional self-harm Qualified Code(s): T42.4X2A - Poisoning by benzodiazepines, intentional self- harm, initial encounter Is this a current diagnosis for this admission?: Yes Plan: Resolved. Being monitored for seizures, she should be out of the window for that at this point. (5) Acute respiratory failure Qualifiers: Respiratory failure complication: unspecified whether with hypoxia or hypercapnia Qualified Code(s): J96.00 - Acute respiratory failure, unspecified whether with hypoxia or hypercapnia Is this a current diagnosis for this admission?: Yes Plan: Resolved. Successfully extubated. (6) Suicide attempt by substance overdose Qualifiers: Encounter type: initial encounter Qualified Code(s): T65.92XA - Toxic effect of unspecified substance, intentional self-harm, initial encounter Is this a current diagnosis for this admission?: Yes Plan: She has been involuntarily committed. She has been seen by [facility]. She is medically cleared for placement. - Plan Summary Summary: 01/09/2020 Received signout from fraud prevention analyst. Patient was admitted a couple of days ago after presenting with toxic encephalopathy. She has a history of suicide attempt in the past with Xanax overdose. This time she was found by her unresponsive on the floor. Her bottle of Ativan which was recently filled was empty but had just been initially picked up about a day or 2 prior to presentation continue 60 1 mg tablets. She responded to Romazicon in the ER and also received charcoal. She was taken to the ICU for close monitoring of mental status but never required intubation. She is now more alert and downgraded to the medical floor. Also she was started on clindamycin in the ICU for suspected aspiration pneumonia after being noted to be spiking fevers. Continue clindamycin for suspected aspiration pneumonia. Patient admits to suicidal attempt lorazepam overdose. However urine drug screen is negative. I will repeat UDS. Currently she has not received any narcotics so far. Monitor mental status closely. Patient will be maintained on IVC Awaiting psych evaluation. Consult has already been ordered. Suicide precautions 01/10/2020 Patient is doing better today. Fevers have stopped. On clindamycin IV for aspiration pneumonia in ICU which I will change to oral. Day 2. Evaluated by psychiatry who recommends decreasing citalopram to 20 mg daily for 5 days then stopping and placing on Depakote 250 mg twice a day. I have entered these orders. Brain lesion on head CT is hyperdense 1.3 x 1.3 x 1.8 cm in left parietal without any vasogenic edema or mass-effect. I have discussed findings with radiologist informs me that it seems the lesion has been present since CT on 2013 at which time it was about 0.8 cm and the likely differential is a menin gioma. It is likely that this lesion is not contributing to patient's mental status. However I will consult oncology to weigh in on this. Psych also recommends placement at inpatient psychiatric facility. Plan discussed with family we have updated about the brain CT findings. - Time Time Spent with patient: 15-24 minutes
[2020-01-11] MEDS: ATORVASTATIN CALCIUM 20 MG TABLET PO SCH (17:14)
[2020-01-11] MEDS: MELATONIN 5 MG TABLET PO SCH (21:48)
[2020-01-12] MEDS: MELATONIN 5 MG TABLET PO PRN (01:45)
[2020-01-12] MEDS: CLINDAMYCIN HCL 150 MG CAPSULE PO SCH ×3 (01:46→18:26)
[2020-01-12] MEDS: HEPARIN SOD (PORCINE) 5,000 UNIT/ML 1 ML VIAL SUBCUT SCH ×3 (05:24→21:23)
[2020-01-12] MEDS: HYDROCHLOROTHIAZIDE 12.5 MG TABLET PO SCH (09:36)
[2020-01-12] MEDS: AMLODIPINE BESYLATE 5 MG TABLET PO SCH (09:36)
[2020-01-12] MEDS: DIVALPROEX SODIUM 250 MG TAB.SR.24H PO SCH ×2 (09:36→21:24)
[2020-01-12] MEDS: CITALOPRAM HYDROBROMIDE 20 MG TABLET PO SCH (09:37)
[2020-01-12] MEDS: HYDROXYZINE PAMOATE 25 MG CAPSULE PO PRN ×2 (10:33→18:26)
--- NOTE | 2020-01-12 16:40 | PDOC PROGRESS REPORT ---
Subjective Progress Note for:: 01/12/20 Subjective:: No adverse events overnight. No new complaints. Her main complaint today is that she wants her "nerve medicine." Apparently she got some melatonin last night but still did not sleep. Reason For Visit: BENZODIAZEPINE OVERDOSE Physical Exam Vital Signs: Temp Pulse Resp BP Pulse Ox 97.9 F 76 16 134/69 H 95 01/12/20 12:00 01/12/20 12:00 01/12/20 12:00 01/12/20 12:00 01/12/20 12:00 Intake & Output 01/11/20 01/12/20 01/13/20 06:59 06:59 06:59 Intake Total 3383 1969 540 Output Total 525 Balance 2858 1970 540 Weight 70 kg 65.3 kg General appearance: PRESENT: no acute distress, disheveled Respiratory exam: PRESENT: clear to auscultation tiffanie, symmetrical, unlabored. ABSENT: accessory muscle use, chest wall tenderness, crackles, prolonged expiratory phas, tachypnea, wheezes Cardiovascular exam: PRESENT: RRR, +S1, +S2 Pulses: PRESENT: normal carotid pulses Vascular exam: PRESENT: normal capillary refill GI/Abdominal exam: PRESENT: normal bowel sounds, soft. ABSENT: distended, guarding, rebound, tenderness Extremities exam: ABSENT: clubbing, pedal edema Musculoskeletal exam: PRESENT: normal inspection. ABSENT: deformity Neurological exam: PRESENT: alert, awake, oriented to person, oriented to place Psychiatric exam: PRESENT: Anxious Skin exam: PRESENT: dry, warm Results Laboratory Results: 01/10/20 05:51 01/10/20 16:55 Impressions: KUB X-Ray 01/07/20 00:00 IMPRESSION: Enteric tube with the tip and proximal port projecting subdiaphragmatically within the left upper quadrant. Chest X-Ray 01/08/20 00:00 IMPRESSION: Bibasilar airspace and pleural disease, similar to prior when accounting for lower lung volumes. Head CT 01/10/20 00:00 IMPRESSION: 1. Hyperdense lesion in the left parietal region along the falx cer ebri measures 13 mm in transverse diameter, 13 mm in AP diameter and 18 mm in craniocaudal diameter ; the lesion has increased in size from 06/12/2014 and exerts no appreciable mass effect upon the adjacent brain parenchyma. The lesion is favored to represent a meningioma - consider correlation with a non- emergent contrast-enhanced MRI. 2. Sequela of chronic microvascular ischemia. EVIDENCE OF ACUTE STROKE: NO. Assessment and Plan - Diagnosis (1) Aspiration pneumonia Qualifiers: Aspiration pneumonia type: due to vomit Laterality: right Lung location: lower lobe of lung Qualified Code(s): J69.0 - Pneumonitis due to inhalation of food and vomit Is this a current diagnosis for this admission?: Yes Plan: She was started on clindamycin. She will take this for a total of 5 days. (2) Brain lesion Is this a current diagnosis for this admission?: Yes Plan: Looks like a meningioma, no further work-up needed, it has been there for years (3) Fever Qualifiers: Fever type: due to other condition Qualified Code(s): R50.81 - Fever presenting with conditions classified elsewhere Is this a current diagnosis for this admission?: Yes Plan: Resolved (4) Overdose of benzodiazepine Qualifiers: Encounter type: initial encounter Injury intent: intentional self-harm Qualified Code(s): T42.4X2A - Poisoning by benzodiazepines, intentional self- harm, initial encounter Is this a current diagnosis for this admission?: Yes Plan: Resolved. Being monitored for seizures, she should be out of the window for that at this point. (5) Acute respiratory failure Qualifiers: Respiratory failure complication: unspecified whether with hypoxia or hypercapnia Qualified Code(s): J96.00 - Acute respiratory failure, unspecified whether with hypoxia or hypercapnia Is this a current diagnosis for this admission?: Yes Plan: Resolved. Successfully extubated. (6) Suicide attempt by substance overdose Qualifiers: Encounter type: initial encounter Qualified Code(s): T65.92XA - Toxic effect of unspecified substance, intentional self-harm, initial encounter Is this a current diagnosis for this admission?: Yes Plan: She has been involuntarily committed. She has been seen by behavioral health. She is medically cleared for placement. (7) Anxiety Is this a current diagnosis for this admission?: Yes Plan: Behavioral health is recommended discontinuing her Zyprexa and alprazolam. I do not want to start her on another benzodiazepine, so we will try some Vistaril as needed. - Plan Summary Summary: 01/09/2020 Received signout from cream dipper. Patient was admitted a couple of days ago after presenting with toxic encephalopathy. She has a history of suicide attempt in the past with Xanax overdose. This time she was found by her unresponsive on the floor. He r bottle of Ativan which was recently filled was empty but had just been initially picked up about a day or 2 prior to presentation continue 60 1 mg tablets. She responded to Romazicon in the ER and also received charcoal. She was taken to the ICU for close monitoring of mental status but never required intubation. She is now more alert and downgraded to the medical floor. Also she was started on clindamycin in the ICU for suspected aspiration pneumonia after being noted to be spiking fevers. Continue clindamycin for suspected aspiration pneumonia. Patient admits to suicidal attempt lorazepam overdose. However urine drug screen is negative. I will repeat UDS. Currently she has not received any narcotics so far. Monitor mental status closely. Patient will be maintained on IVC Awaiting psych evaluation. Consult has already been ordered. Suicide precautions 01/10/2020 Patient is doing better today. Fevers have stopped. On clindamycin IV for aspiration pneumonia in ICU which I will change to oral. Day 2. Evaluated by psychiatry who recommends decreasing citalopram to 20 mg daily for 5 days then stopping and placing on Depakote 250 mg twice a day. I have entered these orders. Brain lesion on head CT is hyperdense 1.3 x 1.3 x 1.8 cm in left parietal without any vasogenic edema or mass-effect. I have discussed findings with radiologist informs me that it seems the lesion has been present since CT on 2013 at which time it was about 0.8 cm and the likely differential is a m eningioma. It is likely that this lesion is not contributing to patient's mental status. However I will consult oncology to weigh in on this. Psych also recommends placement at inpatient psychiatric facility. Plan discussed with family we have updated about the brain CT findings. - Time Time Spent with patient: 15-24 minutes
[2020-01-12] MEDS: ATORVASTATIN CALCIUM 20 MG TABLET PO SCH (18:26)
[2020-01-12] MEDS: MELATONIN 5 MG TABLET PO SCH (21:24)
[2020-01-13] MEDS: CLINDAMYCIN HCL 150 MG CAPSULE PO SCH ×3 (02:41→17:32)
[2020-01-13] MEDS: HEPARIN SOD (PORCINE) 5,000 UNIT/ML 1 ML VIAL SUBCUT SCH ×3 (08:01→21:10)
[2020-01-13] MEDS: HYDROXYZINE PAMOATE 25 MG CAPSULE PO PRN ×2 (08:04→17:32)
[2020-01-13] MEDS: DIVALPROEX SODIUM 250 MG TAB.SR.24H PO SCH ×2 (10:02→21:10)
[2020-01-13] MEDS: HYDROCHLOROTHIAZIDE 12.5 MG TABLET PO SCH (10:02)
[2020-01-13] MEDS: AMLODIPINE BESYLATE 5 MG TABLET PO SCH (10:02)
[2020-01-13] MEDS: CITALOPRAM HYDROBROMIDE 20 MG TABLET PO SCH (10:03)
--- NOTE | 2020-01-13 16:11 | PDOC PROGRESS REPORT ---
Subjective Progress Note for:: 01/13/20 Subjective:: No adverse events overnight. No new complaints. Her main complaint today is that she wants a different "nerve medicine." She does not think that the one we ordered yesterday works. However, she was dozing whenever I came into the room and apparently she did get a little bit of sleep last night. Her appetite is still not very good. Reason For Visit: BENZODIAZEPINE OVERDOSE Physical Exam Vital Signs: Temp Pulse Resp BP Pulse Ox 97.7 F 56 L 16 125/63 98 01/13/20 12:00 01/13/20 12:00 01/13/20 12:00 01/13/20 12:00 01/13/20 12:00 Intake & Output 01/12/20 01/13/20 01/14/20 06:59 06:59 06:59 Intake Total 1969 830 832 Balance 1969 830 832 Weight 65.3 kg 65.3 kg General appearance: PRESENT: no acute distress, disheveled Respiratory exam: PRESENT: clear to auscultation tiffanie, symmetrical, unlabored. ABSENT: accessory muscle use, chest wall tenderness, crackles, prolonged expira tory phas, tachypnea, wheezes Cardiovascular exam: PRESENT: RRR, +S1, +S2 Pulses: PRESENT: normal carotid pulses Vascular exam: PRESENT: normal capillary refill GI/Abdominal exam: PRESENT: normal bowel sounds, soft. ABSENT: distended, guarding, rebound, tenderness Extremities exam: ABSENT: clubbing, pedal edema Musculoskeletal exam: PRESENT: normal inspection. ABSENT: deformity Neurological exam: PRESENT: alert, awake, oriented to person, oriented to place Psychiatric exam: PRESENT: Flat affect Skin exam: PRESENT: dry, warm Results Laboratory Results: 01/10/20 05:51 01/10/20 16:55 Impressions: KUB X-Ray 01/07/20 00:00 IMPRESSION: Enteric tube with the tip and proximal port projecting subdiaphragmatically within the left upper quadrant. Chest X-Ray 01/08/20 00:00 IMPRESSION: Bibasilar airspace and pleural disease, similar to prior when accounting for lower lung volumes. Head CT 01/10/20 00:00 IMPRESSION: 1. Hyperdense lesion in the left parietal region along the falx cerebri measures 13 mm in transverse diameter, 13 mm in AP diameter and 18 mm in craniocaudal diameter ; the lesion has increased in size from 06/12/2014 and exerts no appreciable mass effect upon the adjacent brain parenchyma. The lesion is favored to represent a meningioma - consider correlation with a non- emergent contrast-enhanced MRI. 2. Sequela of chronic microvascular ischemia. EVIDENCE OF ACUTE STROKE: NO. Assessment and Plan - Diagnosis (1) Aspiration pneumonia Qualifiers: Aspiration pneumonia type: due to vomit Laterality: right Lung location: lower lobe of lung Qualified Code(s): J69.0 - Pneumonitis due to inhalation of food and vomit Is this a current diagnosis for this admission?: Yes Plan: She was started on clindamycin. She will take this for a total of 5 days. (2) Brain lesion Is this a current diagnosis for this admission?: Yes Plan: Looks like a meningioma, no further work-up needed, it has been there for years (3) Fever Qualifiers: Fever type: due to other condition Qualified Code(s): R50.81 - Fever presenting with conditions classified elsewhere Is this a current diagnosis for this admission?: Yes Plan: Resolved (4) Overdose of benzodiazepine Qualifiers: Encounter type: initial encounter Injury intent: intentional self-harm Qualified Code(s): T42.4X2A - Poisoning by benzodiazepines, intentional self-luz m, initial encounter Is this a current diagnosis for this admission?: Yes Plan: Resolved. Being monitored for seizures, she should be out of the window for that at this point. (5) Acute respiratory failure Qualifiers: Respiratory failure complication: unspecified whether with hypoxia or hypercapnia Qualified Code(s): J96.00 - Acute respiratory failure, unspecified whether with hypoxia or hypercapnia Is this a current diagnosis for this admission?: Yes Plan: Resolved. Successfully extubated. (6) Suicide attempt by substance overdose Qualifiers: Encounter type: initial encounter Qualified Code(s): T65.92XA - Toxic effect of unspecified substance, intentional self-harm, initial encounter Is this a current diagnosis for this admission?: Yes Plan: She has been involuntarily committed. She has been seen by behavioral health. She is medically cleared for placement. (7) Anxiety Is this a current diagnosis for this admission?: Yes Plan: Continue hydroxyzine - Plan Summary Summary: 01/09/2020 Received signout from hide inspector. Patient was admitted a couple of days ago after presenting with toxic encephalopathy. She has a history of suicide attempt in the past with Xanax overdose. This time she was found by her unresponsive on the floor. Her bottle of Ativan which was recently filled was empty but had just been initially picked up about a day or 2 prior to presentation continue 60 1 mg tablets. She responded to Romazicon in the ER and also received charcoal. She was taken to the ICU for close monitoring of mental status but never required intubation. She is now more alert and downgraded to the medical floor. Also she was started on clindamycin in the ICU for suspected aspiration pneumonia after being noted to be spiking fevers. Continue clindamycin for suspected aspiration pneumonia. Patient admits to suicidal attempt lorazepam overdose. However urine drug screen is negative. I will repeat UDS. Currently she has not received any britney cotics so far. Monitor mental status closely. Patient will be maintained on IVC Awaiting psych evaluation. Consult has already been ordered. Suicide precautions 01/10/2020 Patient is doing better today. Fevers have stopped. On clindamycin IV for aspiration pneumonia in ICU which I will change to oral. Day 2. Evaluated by psychiatry who recommends decreasing citalopram to 20 mg daily for 5 days then stopping and placing on Depakote 250 mg twice a day. I have entered these orders. Brain lesion on head CT is hyperdense 1.3 x 1.3 x 1.8 cm in left parietal without any vasogenic edema or mass-effect. I have discussed findings with radiologist informs me that it seems the lesion has been present since CT on 2013 at which time it was about 0.8 cm and the likely differential is a meningioma. It is likely that this lesion is not contributing to patient's mental status. However I will consult oncology to weigh in on this. Psych also recommends placement at inpatient psychiatric facility. Plan discussed with family we have updated about the brain CT findings. - Time Time Spent with patient: 15-24 minutes
[2020-01-13] MEDS: ATORVASTATIN CALCIUM 20 MG TABLET PO SCH (17:32)
[2020-01-13] MEDS: MELATONIN 5 MG TABLET PO SCH (21:10)
[2020-01-14] MEDS: CLINDAMYCIN HCL 150 MG CAPSULE PO SCH ×3 (02:21→17:23)
[2020-01-14] MEDS: HYDROXYZINE PAMOATE 25 MG CAPSULE PO PRN ×3 (03:15→22:17)
[2020-01-14] MEDS: HEPARIN SOD (PORCINE) 5,000 UNIT/ML 1 ML VIAL SUBCUT SCH ×3 (05:10→21:04)
[2020-01-14] MEDS: CITALOPRAM HYDROBROMIDE 20 MG TABLET PO SCH (09:11)
[2020-01-14] MEDS: DIVALPROEX SODIUM 250 MG TAB.SR.24H PO SCH ×2 (09:12→21:04)
[2020-01-14] MEDS: AMLODIPINE BESYLATE 5 MG TABLET PO SCH (09:13)
[2020-01-14] MEDS: HYDROCHLOROTHIAZIDE 12.5 MG TABLET PO SCH (09:13)
[2020-01-14] MEDS: ATORVASTATIN CALCIUM 20 MG TABLET PO SCH (17:23)
--- NOTE | 2020-01-14 17:50 | PDOC PROGRESS REPORT ---
Subjective Progress Note for:: 01/14/20 Subjective:: No adverse events overnight. No new complaints. Vital signs been stable. Appetite is improving. She got more sleep last night. Reason For Visit: BENZODIAZEPINE OVERDOSE Physical Exam Vital Signs: Temp Pulse Resp BP Pulse Ox 97.9 F 64 15 128/54 H 94 01/14/20 15:17 01/14/20 15:17 01/14/20 15:17 01/14/20 15:17 01/14/20 15:17 Intake & Output 01/13/20 01/14/20 01/15/20 06:59 06:59 06:59 Intake Total 830 1168 Balance 830 1168 Weight 65.3 kg 62.8 kg General appearance: PRESENT: no acute distress, disheveled Respiratory exam: PRESENT: clear to auscultation tiffanie, symmetrical, unlabored. ABSENT: accessory muscle use, chest wall tenderness, crackles, prolonged expiratory phas, tachypnea, wheezes Cardiovascular exam: PRESENT: RRR, +S1, +S2 Pulses: PRESENT: normal carotid pulses Vascular exam: PRESENT: normal capillary refill GI/Abdominal exam: PRESENT: normal bowel sounds, soft. ABSENT: distended, guarding, rebound, tenderness Extremities exam: ABSENT: clubbing, pedal edema Musculoskeletal exam: PRESENT: normal inspection. ABSENT: deformity Neurological exam: PRESENT: alert, awake, oriented to person, oriented to place Psychiatric exam: PRESENT: Flat affect Skin exam: PRESENT: dry, warm Results Laboratory Results: 01/10/20 05:51 01/10/20 16:55 Impressions: KUB X-Ray 01/07/20 00:00 IMPRESSION: Enteric tube with the tip and proximal port projecting subdiaphragmatically within the left upper quadrant. Chest X-Ray 01/08/20 00:00 IMPRESSION: Bibasilar airspace and pleural disease, similar to prior when accounting for lower lung volumes. Head CT 01/10/20 00:00 IMPRESSION: 1. Hyperdense lesion in the left parietal region along the falx cerebri measures 13 mm in transverse diameter, 13 mm in AP diameter and 18 mm in craniocaudal diameter ; the lesion has increased in size from 06/12/2014 and exerts no appreciable mass effect upon the adjacent brain parenchyma. The lesion is favored to represent a meningioma - consider correlation with a non- emergent contrast-enhanced MRI. 2. Sequela of chronic microvascular ischemia. EVIDENCE OF ACUTE STROKE: NO. Assessment and Plan - Diagnosis (1) Aspiration pneumonia Qualifiers: Aspiration pneumonia type: due to vomit Laterality: right Lung location: lower lobe of lung Qualified Code(s): J69.0 - Pneumonitis due to inhalation of food and vomit Is this a current diagnosis for this admission?: Yes Plan: She was started on clindamycin. She will take this for a total of 5 days. (2) Brain lesion Is this a current diagnosis for this admission?: Yes Plan: Looks like a meningioma, no further work-up needed, it has been there for years (3) Fever Qualifiers: Fever type: due to other condition Qualified Code(s): R50.81 - Fever presenting with conditions classified elsewhere Is this a current diagnosis for this admission?: Yes Plan: Resolved (4) Overdose of benzodiazepine Qualifiers: Encounter type: initial encounter Injury intent: intentional self-harm Qualified Code(s): T42.4X2A - Poisoning by benzodiazepines, intentional self- harm, initial encounter Is this a current diagnosis for this admission?: Yes Plan: Resolved. Being monitored for seizures, she should be out of the window for that at this point. (5) Acute respiratory failure Qualifiers: Respiratory failure complication: unspecified whether with hypoxia or hypercapnia Qualified Code(s): J96.00 - Acute respiratory failure, unspecified whether with hypoxia or hypercapnia Is this a current diagnosis for this admission?: Yes Plan: Resolved. Successfully extubated. (6) Suicide attempt by substance overdose Qualifiers: Encounter type: initial encounter Qualified Code(s): T65.92XA - Toxic effect of unspecified substance, intentional self-harm, initial encounter Is this a current diagnosis for this admission?: Yes Plan: She has been involuntarily committed. She has been seen by behavioral health. She is medically cleared for placement. (7) Anxiety Is this a current diagnosis for this admission?: Yes Plan: Continue hydroxyzine - Plan Summary Summary: 01/09/2020 Received signout from crop picker. Patient was admitted a couple of days ago after presenting with toxic encephalopathy. She has a history of suicide attempt in the past with Xanax overdose. This time she was found by her unresponsive on the floor. Her bottle of Ativan which was recently filled was empty but had just been initially picked up about a day or 2 prior to presentation continue 60 1 mg tablets. She responded to Romazicon in the ER and also received charcoal. She was taken to the ICU for close monitoring of mental status but never required intubation. She is now more alert and downgraded to the medical floor. Also she was started on clindamycin in the ICU for suspected aspiration pneumonia after being noted to be spiking fevers. Continue clindamycin for suspected aspiration pneumonia. Patient admits to suicidal attempt lorazepam overdose. However urine drug screen is negative. I will repeat UDS. Currently she has not received any narcotics so far. Monitor mental status closely. Patient will be maintained on IVC Awaiting psych evaluation. Consult has already been ordered. Suicide precautions 01/10/2020 Patient is doing better today. Fevers have stopped. On clindamycin IV for aspiration pneumonia in ICU which I will change to oral. Day 2. Evaluated by psychiatry who recommends decreasing citalopram to 20 mg daily for 5 days then stopping and placing on Depakote 250 mg twice a day. I have entered these orders. Brain lesion on head CT is hyperdense 1.3 x 1.3 x 1.8 cm in left parietal without any vasogenic edema or mass-effect. I have discussed findings with radiologist informs me that it seems the lesion has been present since CT on 2013 at which time it was about 0.8 cm and the likely differential is a meningioma. It is likely that this lesion is not contributing to patient's mental status. However I will consult oncology to weigh in on this. Psych also recommends placement at inpatient psychiatric facility. Plan discussed with family we have updated about the brain CT findings. - Time Time Spent with patient: 15-24 minutes
[2020-01-14] MEDS: MELATONIN 5 MG TABLET PO SCH (21:04)
[2020-01-15] MEDS: CLINDAMYCIN HCL 150 MG CAPSULE PO SCH ×3 (02:49→17:27)
[2020-01-15] MEDS: HEPARIN SOD (PORCINE) 5,000 UNIT/ML 1 ML VIAL SUBCUT SCH ×3 (05:36→21:25)
[2020-01-15] MEDS: HYDROCHLOROTHIAZIDE 12.5 MG TABLET PO SCH (09:32)
[2020-01-15] MEDS: CITALOPRAM HYDROBROMIDE 20 MG TABLET PO SCH (09:32)
[2020-01-15] MEDS: DIVALPROEX SODIUM 250 MG TAB.SR.24H PO SCH ×2 (09:32→21:27)
[2020-01-15] MEDS: AMLODIPINE BESYLATE 5 MG TABLET PO SCH (09:32)
--- NOTE | 2020-01-15 10:48 | PSYCHOLOGICAL NOTE ---
Psych Note - Psych Note Date seen by psych provider: 09/15/19 Time seen by psych provider: 19:00 Psych Note: Reason for Consult: reported intentional overdose Check in conducted with patient: Patient continues to demonstrate little insight into her behaviors that resulted in her need for hospitalization or the importance of treatment. Patient repeatedly states that she wants to go home to her , she wont "do it again," and that she has "learned my lesson." Chart review conducted: Head CT 01/10/20 00:00 IMPRESSION: 1. Hyperdense lesion in the left parietal region along the falx cerebri measures 13 mm in transverse diameter, 13 mm in AP diameter and 18 mm in craniocaudal diameter ; the lesion has increased in size from 06/12/2014 and exerts no appreciable mass effect upon the adjacent brain parenchyma. The lesion is favored to represent a meningioma - consider correlation with a non- emergent contrast-enhanced MRI. 2. Sequela of chronic microvascular ischemia. Medication Recommendations from Consulting Psychiatric Provider include: 1. Continue Celexa 20 mg daily;4 more days then discontinue 2. Continue Depakote 250 mg by mouth twice per day 3. Discontinue Home Medication Zyprexa and Ativan Clinical Impressions: Personality Traits-Cluster B Depression Attention Seeking Impression/Plan: Patient is under Full IVC. She reported she took a full bottle of Ativan; however, review of her toxicology screen was negative both times it was completed. There has been concern that the patient's medical could be effecting her mental status and it is still unclear. This information is important in building the patient's appropriate plan of care ie neurological treatment if medical verses psychiatric treatment if psychiatric. If patient's mental status, impulsiveness, poor insight and judgment is stemming from neurological (possible/probable meningioma that has increased in size since last Head CT on 06/12/2014), inpatient psychiatric treatment would not be appropriate. Dr. Xiao was consulted on the care and management of this patient; attending physician is in agreement with recommendations and disposition.
--- NOTE | 2020-01-15 14:57 | PDOC PROGRESS REPORT ---
Subjective Progress Note for:: 01/15/20 Subjective:: No adverse events overnight. No new complaints. Vital signs been stable. Appetite is fair. She said she did not really sleep last night. Reason For Visit: BENZODIAZEPINE OVERDOSE Physical Exam Vital Signs: Temp Pulse Resp BP Pulse Ox 97.4 F 76 16 144/53 H 99 01/15/20 11:05 01/15/20 11:05 01/15/20 11:05 01/15/20 11:05 01/15/20 11:05 Intake & Output 01/14/20 01/15/20 01/16/20 06:59 06:59 06:59 Intake Total 1168 50 Balance 1168 50 Weight 62.8 kg 63.1 kg General appearance: PRESENT: no acute distress, disheveled Respiratory exam: PRESENT: clear to auscultation tiffanie, symmetrical, unlabored. ABSENT: accessory muscle use, chest wall tenderness, crackles, prolonged expiratory phas, tachypnea, wheezes Cardiovascular exam: PRESENT: RRR, +S1, +S2 Pulses: PRESENT: normal carotid pulses Vascular exam: PRESENT: normal capillary refill GI/Abdominal exam: PRESENT: normal bowel sounds, soft. ABSENT: distended, guarding, rebound, tenderness Extremities exam: ABSENT: clubbing, pedal edema Musculoskeletal exam: PRESENT: normal inspection. ABSENT: deformity Neurological exam: PRESENT: alert, awake, oriented to person, oriented to place Psychiatric exam: PRESENT: Flat affect Skin exam: PRESENT: dry, warm Results Laboratory Results: 01/10/20 05:51 01/10/20 16:55 Impressions: KUB X-Ray 01/07/20 00:00 IMPRESSION: Enteric tube with the tip and proximal port projecting subdiaphragmatically within the left upper quadrant. Chest X-Ray 01/08/20 00:00 IMPRESSION: Bibasilar airspace and pleural disease, similar to prior when accounting for lower lung volumes. Head CT 01/10/20 00:00 IMPRESSION: 1. Hyperdense lesion in the left parietal region along the falx cerebri measures 13 mm in transverse diameter, 13 mm in AP diameter and 18 mm in craniocaudal diameter ; the lesion has increased in size from 06/12/2014 and exerts no appreciable mass effect upon the adjacent brain parenchyma. The lesion is favored to represent a meningioma - consider correlation with a non- emergent contrast-enhanced MRI. 2. Sequela of chronic microvascular ischemia. EVIDENCE OF ACUTE STROKE: NO. Assessment and Plan - Diagnosis (1) Aspiration pneumonia Qualifiers: Aspiration pneumonia type: due to vomit Laterality: right Lung location: lower lobe of lung Qualified Code(s): J69.0 - Pneumonitis due to inhalation of food and vomit Is this a current diagnosis for this admission?: Yes Plan: She was started on clindamycin. She will take this for a total of 5 days. (2) Brain lesion Is this a current diagnosis for this admission?: Yes Plan: Looks like a meningioma, no further work-up needed, it has been there for years. While it has increased in size since the scan to which it was compared in 2013, it still does not exert any mass-effect on the surrounding parenchyma, nor is there is any surrounding vasogenic edema. Therefore, this meningioma is not affecting her mental status. (3) Fever Qualifiers: Fever type: due to other condition Qualified Code(s): R50.81 - Fever pres enting with conditions classified elsewhere Is this a current diagnosis for this admission?: Yes Plan: Resolved (4) Overdose of benzodiazepine Qualifiers: Encounter type: initial encounter Injury intent: intentional self-harm Qualified Code(s): T42.4X2A - Poisoning by benzodiazepines, intentional self- harm, initial encounter Is this a current diagnosis for this admission?: Yes Plan: Resolved. Being monitored for seizures, she should be out of the window for that at this point. (5) Acute respiratory failure Qualifiers: Respiratory failure complication: unspecified whether with hypoxia or hypercapnia Qualified Code(s): J96.00 - Acute respiratory failure, unspecified whether with hypoxia or hypercapnia Is this a current diagnosis for this admission?: Yes Plan: Resolved. Successfully extubated. (6) Suicide attempt by substance overdose Qualifiers: Encounter type: initial encounter Qualified Code(s): T65.92XA - Toxic effect of unspecified substance, intentional self-harm, initial encounter Is this a current diagnosis for this admission?: Yes Plan: She has been involuntarily committed. She has been seen by behavioral health. She is medically cleared for placement. (7) Anxiety Is this a current diagnosis for this admission?: Yes Plan: Continue hydroxyzine - Plan Summary Summary: 01/09/2020 Received signout from mitigation supervisor. Patient was admitted a couple of days ago after presenting with toxic encephalop athy. She has a history of suicide attempt in the past with Xanax overdose. This time she was found by her unresponsive on the floor. Her bottle of Ativan which was recently filled was empty but had just been initially picked up about a day or 2 prior to presentation continue 60 1 mg tablets. She responded to Romazicon in the ER and also received charcoal. She was taken to the ICU for close monitoring of mental status but never required intubation. She is now more alert and downgraded to the medical floor. Also she was started on clindamycin in the ICU for suspected aspiration pneumonia after being noted to be spiking fevers. Continue clindamycin for suspected aspiration pneumonia. Patient admits to suicidal attempt lorazepam overdose. However urine drug screen is negative. I will repeat UDS. Currently she has not received any narcotics so far. Monitor mental status closely. Patient will be maintained on IVC Awaiting psych evaluation. Consult has already been ordered. Suicide precautions 01/10/2020 Patient is doing better today. Fevers have stopped. On clindamycin IV for aspiration pneumonia in ICU which I will change to oral. Day 2. Evaluated by psychiatry who recommends decreasing citalopram to 20 mg daily for 5 days then stopping and placing on Depakote 250 mg twice a day. I have entered these orders. Brain lesion on head CT is hyperdense 1.3 x 1.3 x 1.8 cm in left parietal without any vasogenic edema or mass-effect. I have discussed findings with rad iologist informs me that it seems the lesion has been present since CT on 2013 at which time it was about 0.8 cm and the likely differential is a meningioma. It is likely that this lesion is not contributing to patient's mental status. However I will consult oncology to weigh in on this. Psych also recommends placement at inpatient psychiatric facility. Plan discussed with family we have updated about the brain CT findings. - Time Time Spent with patient: 15-24 minutes
[2020-01-15] MEDS: ATORVASTATIN CALCIUM 20 MG TABLET PO SCH (17:27)
[2020-01-15] MEDS: HYDROXYZINE PAMOATE 25 MG CAPSULE PO PRN (18:42)
[2020-01-15] MEDS: MELATONIN 5 MG TABLET PO SCH (21:27)
[2020-01-16] MEDS: MELATONIN 5 MG TABLET PO PRN ×2 (01:26→22:18)
[2020-01-16] MEDS: ONDANSETRON HCL INJ/PF 4 MG/2 ML SDV IV PRN ×3 (03:49→17:26)
[2020-01-16] MEDS: CLINDAMYCIN HCL 150 MG CAPSULE PO SCH ×3 (04:17→17:06)
[2020-01-16] MEDS: HEPARIN SOD (PORCINE) 5,000 UNIT/ML 1 ML VIAL SUBCUT SCH ×3 (06:08→21:14)
[2020-01-16] MEDS: AMLODIPINE BESYLATE 5 MG TABLET PO SCH (09:39)
[2020-01-16] MEDS: HYDROCHLOROTHIAZIDE 12.5 MG TABLET PO SCH (09:40)
[2020-01-16] MEDS: DIVALPROEX SODIUM 250 MG TAB.SR.24H PO SCH ×2 (09:40→21:14)
[2020-01-16] MEDS: HYDROXYZINE PAMOATE 25 MG CAPSULE PO PRN ×2 (12:16→21:14)
[2020-01-16] MEDS: ATORVASTATIN CALCIUM 20 MG TABLET PO SCH (17:06)
--- NOTE | 2020-01-16 17:33 | PDOC PROGRESS REPORT ---
Subjective Progress Note for:: 01/16/20 Subjective:: No adverse events overnight. No new complaints. Vital signs been stable. Appetite is fair. She said she did not really sleep last night, but the staff reports that she sleeps most of the night. Reason For Visit: BENZODIAZEPINE OVERDOSE Physical Exam Vital Signs: Temp Pulse Resp BP Pulse Ox 97.5 F 69 18 125/50 L 97 01/16/20 12:00 01/16/20 12:00 01/16/20 12:00 01/16/20 12:00 01/16/20 12:00 Intake & Output 01/15/20 01/16/20 01/17/20 06:59 06:59 06:59 Intake Total 50 240 596 Output Total 0 Balance 50 240 596 Weight 63.1 kg 63.3 kg General appearance: PRESENT: no acute distress, disheveled Respiratory exam: PRESENT: clear to auscultation tiffanie, symmetrical, unlabored. ABSENT: accessory muscle use, chest wall tenderness, crackles, prolonged expiratory phas, tachypnea, wheezes Cardiovascular exam: PRESENT: RRR, +S1, +S2 Pulses: PRESENT: normal carotid pulses Vascular exam: PRESENT: normal capillary refill GI/Abdominal exam: PRESENT: normal bowel sounds, soft. ABSENT: distended, guarding, rebound, tenderness Extremities exam: ABSENT: clubbing, pedal edema Musculoskeletal exam: PRESENT: normal inspection. ABSENT: deformity Neurological exam: PRESENT: alert, awake, oriented to person, oriented to place Psychiatric exam: PRESENT: Flat affect Skin exam: PRESENT: dry, warm Results Laboratory Results: 01/10/20 05:51 01/10/20 16:55 Impressions: KUB X-Ray 01/07/20 00:00 IMPRESSION: Enteric tube with the tip and proximal port projecting subdiaphragmatically within the left upper quadrant. Chest X-Ray 01/08/20 00:00 IMPRESSION: Bibasilar airspace and pleural disease, similar to prior when accounting for lower lung volumes. Head CT 01/10/20 00:00 IMPRESSION: 1. Hyperdense lesion in the left parietal region along the falx cerebri measures 13 mm in transverse diameter, 13 mm in AP diameter and 18 mm in craniocaudal diameter ; the lesion has increased in size from 06/12/2014 and exerts no appreciable mass effect upon the adjacent brain parenchyma. The lesion is favored to represent a meningioma - consider correlation with a non- emergent contrast-enhanced MRI. 2. Sequela of chronic microvascular ischemia. EVIDENCE OF ACUTE STROKE: NO. Assessment and Plan - Diagnosis (1) Aspiration pneumonia Qualifiers: Aspiration pneumonia type: due to vomit Laterality: right Lung location: lower lobe of lung Qualified Code(s): J69.0 - Pneumonitis due to inhalation of food and vomit Is this a current diagnosis for this admission?: Yes Plan: Resolved (2) Brain lesion Is this a current diagnosis for this admission?: Yes Plan: Looks like a meningioma, no further work-up needed, it has been there for years. While it has increased in size since the scan to which it was compared in 2013, it still does not exert any mass-effect on the surrounding parenchyma, nor is there is any surrounding vasogenic edema. Therefore, this meningioma is not affecting her mental status. (3) Fever Qualifiers: Fever type: due to other condition Qualified Code(s): R50.81 - Fever presenting with conditions classified elsewhere Is this a current diagnosis for this admission?: Yes Plan: Resolved (4) Overdose of benzodiazepine Qualifiers: Encounter type: initial encounter Injury intent: intentional self-harm Qualified Code(s): T42.4X2A - Poisoning by benzodiazepines, intentional self- harm, initial encounter Is this a current diagnosis for this admission?: Yes Plan: Resolved. Being monitored for seizures, she should be out of the window for that at this point. (5) Acute respiratory failure Qualifiers: Respiratory failure complication: unspecified whether with hypoxia or hypercapnia Qualified Code(s): J96.00 - Acute respiratory failure, unspecified whether with hypoxia or hypercapnia Is this a current diagnosis for this admission?: Yes Plan: Resolved. Successfully extubated. (6) Suicide attempt by substance overdose Qualifiers: Encounter type: initial encounter Qualified Code(s): T65.92XA - Toxic effect of unspecified substance, intentional self-harm, initial encounter Is this a current diagnosis for this admission?: Yes Plan: She has been involuntarily committed. She has been seen by behavioral health. She is medically cleared for placement. (7) Anxiety Is this a current diagnosis for this admission?: Yes Plan: Continue hydroxyzine - Plan Summary Summary: 01/09/2020 Received signout from computer systems support specialist. Patient was admitted a couple of days ago after presenting with toxic encephalopathy. She has a history of suicide attempt in the past with Xanax overdose. This time she was found by her unresponsive on the floor. Her bottle of Ativan which was recently filled was empty but had just been initially picked up about a day or 2 prior to presentation continue 60 1 mg tablets. She responded to Romazicon in the ER and also received charcoal. She was taken to the ICU for close monitoring of mental status but never required intubation. She is now more alert and downgraded to the medical floor. Also she was started on clindamycin in the ICU for suspected aspiration pneumonia after being noted to be spiking fevers. Continue clindamycin for suspected aspiration pneumonia. Patient admits to suicidal attempt lorazepam overdose. However urine drug scre en is negative. I will repeat UDS. Currently she has not received any narcotics so far. Monitor mental status closely. Patient will be maintained on IVC Awaiting psych evaluation. Consult has already been ordered. Suicide precautions 01/10/2020 Patient is doing better today. Fevers have stopped. On clindamycin IV for aspiration pneumonia in ICU which I will change to oral. Day 2. Evaluated by psychiatry who recommends decreasing citalopram to 20 mg daily for 5 days then stopping and placing on Depakote 250 mg twice a day. I have entered these orders. Brain lesion on head CT is hyperdense 1.3 x 1.3 x 1.8 cm in left parietal without any vasogenic edema or mass-effect. I have discussed findings with radiologist informs me that it seems the lesion has been present since CT on 2013 at which time it was about 0.8 cm and the likely differential is a meningioma. It is likely that this lesion is not contributing to patient's mental status. However I will consult oncology to weigh in on this. Psych also recommends placement at inpatient psychiatric facility. Plan discussed with family we have updated about the brain CT findings. - Time Time Spent with patient: 15-24 minutes
[2020-01-16] MEDS: MELATONIN 5 MG TABLET PO SCH (21:14)
[2020-01-17] MEDS: HEPARIN SOD (PORCINE) 5,000 UNIT/ML 1 ML VIAL SUBCUT SCH ×3 (05:15→21:17)
[2020-01-17] MEDS: DIVALPROEX SODIUM 250 MG TAB.SR.24H PO SCH ×2 (09:36→21:17)
[2020-01-17] MEDS: AMLODIPINE BESYLATE 5 MG TABLET PO SCH (09:36)
[2020-01-17] MEDS: HYDROXYZINE PAMOATE 25 MG CAPSULE PO PRN ×2 (09:40→21:17)
[2020-01-17] MEDS: HYDROCHLOROTHIAZIDE 12.5 MG TABLET PO SCH (14:55)
--- NOTE | 2020-01-17 16:55 | PDOC PROGRESS REPORT ---
Subjective Progress Note for:: 01/17/20 Subjective:: No adverse events overnight. No new complaints. Vital signs been stable. Appetite is fair. She keeps asking when she can go home. Reason For Visit: BENZODIAZEPINE OVERDOSE Physical Exam Vital Signs: Temp Pulse Resp BP Pulse Ox 97.7 F 69 18 104/61 99 01/17/20 15:38 01/17/20 15:38 01/17/20 15:38 01/17/20 15:38 01/17/20 15:38 Intake & Output 01/16/20 01/17/20 01/18/20 06:59 06:59 06:59 Intake Total 240 1548 Output Total 0 Balance 240 1548 Weight 63.3 kg 63.7 kg General appearance: PRESENT: no acute distress, disheveled Respiratory exam: PRESENT: clear to auscultation tiffanie, symmetrical, unlabored. ABSENT: accessory muscle use, chest wall tenderness, crackles, prolonged expiratory phas, tachypnea, wheezes Cardiovascular exam: PRESENT: RRR, +S1, +S2 Pulses: PRESENT: normal carotid pulses Vascular exam: PRESENT: normal capillary refill GI/Abdominal exam: PRESENT: normal bowel sounds, soft. ABSENT: distended, guarding, rebound, tenderness Extremities exam: ABSENT: clubbing, pedal edema Musculoskeletal exam: PRESENT: normal inspection. ABSENT: deformity Neurological exam: PRESENT: alert, awake, oriented to person, oriented to place Psychiatric exam: PRESENT: Flat affect Skin exam: PRESENT: dry, warm Results Laboratory Results: 01/10/20 05:51 01/10/20 16:55 Impressions: KUB X-Ray 01/07/20 00:00 IMPRESSION: Enteric tube with the tip and proximal port projecting subdiaphr agmatically within the left upper quadrant. Chest X-Ray 01/08/20 00:00 IMPRESSION: Bibasilar airspace and pleural disease, similar to prior when accounting for lower lung volumes. Head CT 01/10/20 00:00 IMPRESSION: 1. Hyperdense lesion in the left parietal region along the falx cerebri measures 13 mm in transverse diameter, 13 mm in AP diameter and 18 mm in craniocaudal diameter ; the lesion has increased in size from 06/12/2014 and ex erts no appreciable mass effect upon the adjacent brain parenchyma. The lesion is favored to represent a meningioma - consider correlation with a non-emergent contrast-enhanced MRI. 2. Sequela of chronic microvascular ischemia. EVIDENCE OF ACUTE STROKE: NO. Assessment and Plan - Diagnosis (1) Aspiration pneumonia Qualifiers: Aspiration pneumonia type: due to vomit Laterality: right Lung location: lower lobe of lung Qualified Code(s): J69.0 - Pneumonitis due to inhalation of food and vomit Is this a current diagnosis for this admission?: Yes Plan: Resolved (2) Brain lesion Is this a current diagnosis for this admission?: Yes Plan: Looks like a meningioma, no further work-up needed, it has been there for years. While it has increased in size since the scan to which it was compared in 2013, it still does not exert any mass-effect on the surrounding parenchyma, nor is there is any surrounding vasogenic edema. Therefore, this meningioma is not affecting her mental status. (3) Fever Qualifiers: Fever type: due to other condition Qualified Code(s): R50.81 - Fever presenting with conditions classified elsewhere Is this a current diagnosis for this admission?: Yes Plan: Resolved (4) Overdose of benzodiazepine Qualifiers: Encounter type: initial encounter Injury intent: intentional self-harm Qualified Code(s): T42.4X2A - Poisoning by benzodiazepines, intentional self- harm, initial encounter Is this a current diagnosis for this admission?: Yes Plan: Resolved. Being monitored for seizures, she should be out of the window for that at this point. (5) Acute respiratory failure Qualifiers: Respiratory failure complication: unspecified whether with hypoxia or hy percapnia Qualified Code(s): J96.00 - Acute respiratory failure, unspecified whether with hypoxia or hypercapnia Is this a current diagnosis for this admission?: Yes Plan: Resolved. Successfully extubated. (6) Suicide attempt by substance overdose Qualifiers: Encounter type: initial encounter Qualified Code(s): T65.92XA - Toxic effect of unspecified substance, intentional self-harm, initial encounter Is this a current diagnosis for this admission?: Yes Plan: She has been involuntarily committed. She has been seen by behavioral health. She is medically cleared for placement. (7) Anxiety Is this a current diagnosis for this admission?: Yes Plan: Continue hydroxyzine - Plan Summary Summary: 01/09/2020 Received signout from client renewal specialist. Patient was admitted a couple of days ago after presenting with toxic encephalopathy. She has a history of suicide attempt in the past with Xanax overdose. This time she was found by her unresponsive on the floor. Her bottle of Ativan which was recently filled was empty but had just been initially picked up about a day or 2 prior to presentation continue 60 1 mg tablets. She responded to Romazicon in the ER and also received charcoal. She was taken to the ICU for close monitoring of mental status but never required intubation. She is now more alert and downgraded to the medical floor. Also she was started on clindamycin in the ICU for suspected aspiration pneumonia after being noted to be spiking fevers. Continue clindamycin for suspected aspiration pneumonia. Patient admits to suicidal attempt lorazepam overdose. However urine drug screen is negative. I will repeat UDS. Currently she has not received any narcotics so far. Monitor mental status closely. Patient will be maintained on IVC Awaiting psych evaluation. Consult has already been ordered. Suicide precautions 01/10/2020 Patient is doing better today. Fevers have stopped. On clindamycin IV for aspiration pneumonia in ICU which I will change to oral. Day 2. Evaluated by psychiatry who recommends decreasing citalopram to 20 mg daily for 5 days then stopping and placing on Depakote 250 mg twice a day. I have entered these orders. Brain lesion on head CT is hyperdense 1.3 x 1.3 x 1.8 cm in left parietal without any vasogenic edema or mass-effect. I have discussed findings with radiologist informs me that it seems the lesion has been present since CT on 2013 at which time it was about 0.8 cm and the likely differential is a meningi ryan. It is likely that this lesion is not contributing to patient's mental status. However I will consult oncology to weigh in on this. Psych also recommends placement at inpatient psychiatric facility. Plan discussed with family we have updated about the brain CT findings. - Time Time Spent with patient: 15-24 minutes
[2020-01-17] MEDS: ATORVASTATIN CALCIUM 20 MG TABLET PO SCH (17:31)
[2020-01-17] MEDS: MELATONIN 5 MG TABLET PO SCH (21:17)
[2020-01-17] MEDS: MELATONIN 5 MG TABLET PO PRN (22:03)
[2020-01-18] MEDS: HEPARIN SOD (PORCINE) 5,000 UNIT/ML 1 ML VIAL SUBCUT SCH ×3 (05:03→21:18)
--- NOTE | 2020-01-18 08:26 | PDOC CONSULTATION ---
Consultation-Blank Consultation: Psychiatry has been closely following this case and continued to be involved. Initial consultation resulted in Patient being placed on IVC since she reported an intentional overdose on Ativan and continued to be guarded on interview. Review of her chart revealed an abnormal head CT from 2013 with language sugge stive of neurodegenerative processes which can represent a dementia like process, particulary in the elderly population or in those individuals who have experienced traumatic brain injury or stroke earlier in their life. As such, an updated head CT was requested to identify if there had been any significant changes to the Patient's brain processes that might provide more information to her current situation and presentation. Results of the current Head CT dated 01.10.2020 revealed the followin. Hyperdense lesion in the left parietal region along the falx cerebri measures 13 mm in transverse diameter, 13 mm in AP diameter and 18 mm in craniocaudal diameter ; the lesion has increased in size from 06/12/2014 and exerts no appreciable mass effect upon the adjacent brain parenchyma. The lesion is favored to represent a meningioma - consider correlation with a non-emergent contrast-enhanced MRI. 2. Sequela of chronic microvascular ischemia. Given these results, an Oncology consult was placed by the attending Physician and results of that consultation indicated the Oncologist spoke with the Patient and advised the Physician wished to make a Neurosurgery referral for further investigation and treatment of the meningioma before Oncology involvement. However, the Patient advised the physician she would not follow through with the any treatment recommended by the Neurosurgeon so it was a mute point. Subsequently, Psychiatry verbally requested to the attending physician the contrast-enhanced MRI as indicated in the radiology report. The attending Physician declined, citing that the CT suggested "no appreciable mass effect upon the adjacent brain parenchyma." Psychiatry evaluated the Patient again and assessed her neurocognitive symptoms and though she was felt to maintain capacity, it was felt more information is needed to make a safe discharge plan as she had been denied by multiple inpatient psychiatric hospitals due to her lack of mobility, physical independence, and medical issues. Psychiatry allowed the IVC to on 01.16.2020 and continued to ask for the brain MRI which continued to be denied. It is understood that an MRI is typically and can be done on an outpatient basis, it is felt to be an important procedure in this Patient's care in an effort to appropriately treatment plan for discharge. The Patient was admitted for an overdose of Ativan resulting in toxic encephalopathy, the etiology or reason for such overdose may have neurological underpinnings tracing back to the growing meningioma. The Patient has a history of reported overdose in the past few years which is concurrent with the meningioma growth, and though the two seem unrelated, research on meningiomas in the left parietal areas indicate the opposite. Reena et al. [1] reports that MRI is preferred for the diagnosis and evaluation of brain meningiomas. It more accurately evaluates en plaque and posterior fossa meningiomas, which may be missed on CT scanning. Meningiomas envelop vessels and cranial nerves, and grow through foramina, causing nerve palsies[2]. The falx contains two large blood vessels. Symptoms may include personality changes, headache, vision problems, and arm or leg weakness. The Patient presents with bilateral lower extremity paresis and is unable to ambulate safely and independently. She reportedly has been digressing in her Prifloat living skills per Patient report. Her ability to communicate has declined since her evaluation in 2013, where she is now answering mostly in 1-2 word responses, and occasionally in 3-4 word sentences that appear to take a great deal of effort. She presents with flat affect and maintains very little insight to her problems, her situation or limitations. Taken together and in summary, the Patient is demonstrating sign and symptoms of neurocognitive decline likely stemming from neurovascular complications from chronic miscovascular ischemia and age related decline. It is also possible the meningioma is contributory to her current presentation (personality change, bilateral lower extremity paresis, lack of independence) even though it is not "exhibiting appreciable mass effect on brain parenchyma" on CT scans. Research demonstrates that an MRI can provide more extensive information and assessment of the meningioma and its effects on the brain than a CT. Psychiatry is again asking for this procedure to be completed to assist in discharge planning recommendations. Personality changes, physical limitations (if caused by the meningioma), etc. can impact the instructions provided to the family on how to proceed and the expectations they should have going forward regarding levels of care, guardianship, medical appointments, etc., in addition to helping the Patient more fully understand her current medical condition prior to discharge. Christian Xiao Psy.D. Clinical Neuropsychologist References: 1. Reena A, Jaciel DT, Ignacia E, Sarwat CC, Louie B, Abe A, et al. Use of Dif fusion Weighted Imaging in Differentiating Between Maligant and Benign Meningiomas. A Multicenter Analysis. [employer]. 2015 May 20. 2 Anitha J, Denita G, Victor M A, Angela P, Ben N, Lexa T. Magnetic resonance imaging of meningiomas: a pictorial review. [employer]. 2014;5(1):942883. doi: 10.1007/p19999-355-7920-4.
[2020-01-18] MEDS: AMLODIPINE BESYLATE 5 MG TABLET PO SCH (09:54)
[2020-01-18] MEDS: DIVALPROEX SODIUM 250 MG TAB.SR.24H PO SCH ×2 (09:55→21:17)
[2020-01-18] MEDS: HYDROCHLOROTHIAZIDE 12.5 MG TABLET PO SCH (09:56)
--- NOTE | 2020-01-18 12:44 | RADIOLOGY REPORT (SQ) ---
EXAM DESCRIPTION: MRI HEAD WITHOUT IMAGES COMPLETED DATE/TIME: 01/18/2020 12:08 pm REASON FOR STUDY: meningioma COMPARISON: None. TECHNIQUE: Multiplanar imaging includes non-contrasted T1, T2, FLAIR, and diffusion with ADC map seq uences. Images stored on PACS. LIMITATIONS: Motion artifact. FINDINGS: ANATOMY: 13 mm nodule along the left occipital falx similar to adjacent brain on T1 and T2 . Restricted diffusion. No mass effect. CSF SPACES: Atrophy induced prominence of ventricles and CSF spaces. CEREBRUM: High signal intensity lesions scattered throughout the white matter on FLAIR imaging with d istribution suggesting micro-vascular ischemic changes. No evidence of hemorrhage, mass, or extraaxi al fluid collection. POSTERIOR FOSSA: No signal alteration. No hemorrhage. No edema, masses or mass effect. Internal martin tory canals, cerebello-pontine angles, mastoids normal. DIFFUSION IMAGING: Negative for acute or sub-acute infarction. ORBITS: No masses. Globes normal. PARANASAL SINUSES: No fluid levels. Mucosa normal. OTHER: No other significant finding. IMPRESSION: Limitations due to motion and lack of contrast. Most likely benign meningioma. Six-mon th follow-up head CT with and without contrast is recommended. EVIDENCE OF ACUTE STROKE: NO. TECHNICAL DOCUMENTATION: JOB ID: [id number] 2010 [employer]- All Rights Reserved Reading location - IP/workstation name: [email or web address]
--- NOTE | 2020-01-18 14:56 | PDOC CONSULTATION ---
Consultation-Kori Consultation: 01.18.2020 [id number] Spoke with Patient's son Bryon and his regarding Patient status and psychiatric plan of care. Discussed with family the initial psychiatric evaluation and impression to include the reason for the IVC. Discussed with family the current and future neurocognitve presentation of the Patient as she continues to age, based on the head CT and MRI results. Provided referral information on community based providers for Mental Health and Neurology, as well as providing a guide on how to work with individuals who have a traumatic brain injury. This resource was given because it provides guidance on strategies on how to talk, redirect, and/or manage an individual with behaviors related to brain dysfunction or abnormalities. Discussed with family that Patient's presentation is bilateral lower extremity paresis and an inability to ambulate safely and independently. She reportedly has been digressing in her every day living skills and her communication skills have noticeably declined to mostly 1-2 word responses, and occasionally 3-4 word sentences that appear to take a great deal of effort. She has flat affect and very little insight to her problems, her situation or limitations. Patient's ability to manage her impulses is a problem and will continue to be problematic if not get worse. Thus, Patient's medications should be safely secured where she is unable to access them and it would a better proposition for a family member to be in control of the Patient medications to avoid an accidental or intentional overdose. Patient is perseverative on one topic and though it may appear she is being stubborn, it is actually her brain's inability to move from the thought process or topic currently on her mind. As a result, the Patient is likely to repeat herself frequently and become demanding and subsequently frustrated if she feels her needs or topic of perseveration are not being met or acknowledged. Advised the Patient is at risk for falling and given her lack of insight to bilateral lower extremity weakness. In addition, it is possible the Patient will require prompting to engage in activities of daily living such as grooming, showering, brushing her teethe, etc. Medication recommendation from consulting psychiatric provider include: Add Buspar 5 mg twice per day Discontinue Vistaril Plan: Patient is cleared from acute psychiatric care. Resource information was placed on Patient chart in a folder, available for the family upon Patient discharge. Discussed Patient case extensively with Dr. Holley to include the discharge recommendations and conversation with the family. Also discussed the new medication recommendation from the consulting psychiatric provider. He was in agreement with recommendation and disposition. Thank you for the referral and please do not hesitate to contact the behavioral health office at [phone] with any questions regarding this consult.
--- NOTE | 2020-01-18 18:20 | PDOC PROGRESS REPORT ---
Subjective Progress Note for:: 01/18/20 Subjective:: No adverse events overnight. No new complaints. Vital signs been stable. We have been trying to encourage her to ambulate. Appetite has been fair. Reason For Visit: BENZODIAZEPINE OVERDOSE Physical Exam Vital Signs: Temp Pulse Resp BP Pulse Ox 97.8 F 71 18 133/53 H 98 01/18/20 14:58 01/18/20 14:58 01/18/20 14:58 01/18/20 14:58 01/18/20 14:58 Intake & Output 01/17/20 01/18/20 01/19/20 06:59 06:59 06:59 Intake Total 1548 Balance 1548 Weight 63.7 kg 63.8 kg General appearance: PRESENT: no acute distress, disheveled Respiratory exam: PRESENT: clear to auscultation tiffanie, symmetrical, unlabored. ABSENT: accessory muscle use, chest wall tenderness, crackles, prolonged expir atory phas, tachypnea, wheezes Cardiovascular exam: PRESENT: RRR, +S1, +S2 Pulses: PRESENT: normal carotid pulses Vascular exam: PRESENT: normal capillary refill GI/Abdominal exam: PRESENT: normal bowel sounds, soft. ABSENT: distended, guarding, rebound, tenderness Extremities exam: ABSENT: clubbing, pedal edema Musculoskeletal exam: PRESENT: normal inspection. ABSENT: deformity Neurological exam: PRESENT: alert, awake, oriented to person, oriented to place Psychiatric exam: PRESENT: Flat affect Skin exam: PRESENT: dry, warm Results Laboratory Results: 01/10/20 05:51 01/10/20 16:55 Impressions: KUB X-Ray 01/07/20 00:00 IMPRESSION: Enteric tube with the tip and proximal port projecting subdiaphragmatically within the left upper quadrant. Chest X-Ray 01/08/20 00:00 IMPRESSION: Bibasilar airspace and pleural disease, similar to prior when accounting for lower lung volumes. Head CT 01/10/20 00:00 IMPRESSION: 1. Hyperdense lesion in the left parietal region along the falx cerebri measures 13 mm in transverse diameter, 13 mm in AP diameter and 18 mm in craniocaudal diameter ; the lesion has increased in size from 06/12/2014 and exerts no appreciable mass effect upon the adjacent brain parenchyma. The lesion is favored to represent a meningioma - consider correlation with a non- emergent contrast-enhanced MRI. 2. Sequela of chronic microvascular ischemia. EVIDENCE OF ACUTE STROKE: NO. Head MRI 01/18/20 00:00 IMPRESSION: Limitations due to motion and lack of contrast. Most likely benign meningioma. Six-month follow-up head CT with and without contrast is recommended. EVIDENCE OF ACUTE STROKE: NO. Assessment and Plan - Diagnosis (1) Aspiration pneumonia Qualifiers: Aspiration pneumonia type: due to vomit Laterality: right Lung location: lower lobe of lung Qualified Code(s): J69.0 - Pneumonitis due to inhalation of food and vomit Is this a current diagnosis for this admission?: Yes Plan: Resolved (2) Brain lesion Is this a current diagnosis for this admission?: Yes Plan: MRI suggestive of benign meningioma. Follow-up scanning was recommended on outpatient basis. (3) Fever Qualifiers: Fever type: due to other condition Qualified Code(s): R50.81 - Fever presenting with conditions classified elsewhere Is this a current diagnosis for this admission?: Yes Plan: Resolved (4) Overdose of benzodiazepine Qualifiers: Encounter type: initial encounter Injury intent: intentional self-harm Qualified Code(s): T42.4X2A - Poisoning by benzodiazepines, intentional self- harm, initial encounter Is this a current diagnosis for this admission?: Yes Plan: She was seen today by Dr. Xiao. Full recommendations are pending. (5) Acute respiratory failure Qualifiers: Respiratory failure complication: unspecified whether with hypoxia or hypercapnia Qualified Code(s): J96.00 - Acute respiratory failure, unspecified whether with hypoxia or hypercapnia Is this a current diagnosis for this admission?: Yes Plan: Resolved. Successfully extubated. (6) Suicide attempt by substance overdose Qualifiers: Encounter type: initial encounter Qualified Code(s): T65.92XA - Toxic effect of unspecified substance, intentional self-harm, initial encounter Is this a current diagnosis for this admission?: Yes Plan: She has been seen today by Dr. Xiao. Full recommendations are pending. (7) Anxiety Is this a current diagnosis for this admission?: Yes Plan: Discontinue hydroxyzine, start BuSpar - Plan Summary Summary: 01/09/2020 Received signout from toe stripper. Patient was admitted a couple of days ago after presenting with toxic encephalopathy. She has a history of suicide attempt in the past with Xanax overdose. This time she was found by her unresponsive on the floor. Her bottle of Ativan which was recently filled was empty but had just been initially picked up about a day or 2 prior to presentation continue 60 1 mg tablets. She responded to Romazicon in the ER and also received charcoal. She was taken to the ICU for close monitoring of mental status but never required intubation. She is now more alert and downgraded to the medical floor. Also she was started on clindamycin in the ICU for suspected aspiration pneumonia after being noted to be spiking fevers. Continue clindamycin for suspected aspiration pneumonia. Patient admits to suicidal attempt lorazepam overdose. However urine drug screen is negative. I will repeat UDS. Currently she has not received any narcotics so far. Monitor mental status closely. Patient will be maintained on IVC Awaiting psych evaluation. Consult has already been ordered. Suicide precautions 01/10/2020 Patient is doing better today. Fevers have stopped. On clindamycin IV for aspiration pneumonia in ICU which I will change to oral. Day 2. Evaluated by psychiatry who recommends decreasing citalopram to 20 mg daily for 5 days then stopping and placing on Depakote 250 mg twice a day. I have entered these orders. Brain lesion on head CT is hyperdense 1.3 x 1.3 x 1.8 cm in left parietal without any vasogenic edema or mass-effect. I have discussed findings with radiologist informs me that it seems the lesion has been present since CT on 2013 at which time it was about 0.8 cm and the likely differential is a meningioma. It is likely that this lesion is not contributing to patient's mental status. However I will consult oncology to weigh in on this. Psych also recommends placement at inpatient psychiatric facility. Plan discussed with family we have updated about the brain CT findings. - Time Time Spent with patient: 15-24 minutes
[2020-01-18] MEDS: ATORVASTATIN CALCIUM 20 MG TABLET PO SCH (18:39)
[2020-01-18] MEDS: MELATONIN 5 MG TABLET PO SCH (21:17)
[2020-01-18] MEDS: BUSPIRONE HCL 10 MG TABLET PO SCH (21:17)
[2020-01-19] MEDS: HEPARIN SOD (PORCINE) 5,000 UNIT/ML 1 ML VIAL SUBCUT SCH (05:15)
[2020-01-19] MEDS: DIVALPROEX SODIUM 250 MG TAB.SR.24H PO SCH (10:03)
[2020-01-19] MEDS: BUSPIRONE HCL 10 MG TABLET PO SCH (10:03)
[2020-01-19] MEDS: AMLODIPINE BESYLATE 5 MG TABLET PO SCH (10:06)
[2020-01-19] MEDS: HYDROCHLOROTHIAZIDE 12.5 MG TABLET PO SCH (10:06)
[2020-01-19 12:27] VITALS: BP 117/44
--- NOTE | 2020-01-19 19:08 | PDOC DISCHARGE SUMMARY ---
Impression - Admit/DC Date/PCP Admission Date/Primary Care Provider: 01/07/20 21:56 ZOË BENJAMIN, Discharge Date: 01/19/20 - Discharge Diagnosis (1) Overdose of benzodiazepine Is this a current diagnosis for this admission?: Yes (2) Aspiration pneumonia Is this a current diagnosis for this admission?: Yes (3) Fever Is this a current diagnosis for this admission?: Yes (4) Brain lesion Is this a current diagnosis for this admission?: Yes (5) Acute respiratory failure with hypoxia Is this a current diagnosis for this admission?: Yes (6) Anxiety Is this a current diagnosis for this admission?: Yes (7) Suicide attempt by substance overdose Is this a current diagnosis for this admission?: Yes - Assessment Summary: 01/09/2020 Received signout from collar fuser. Patient was admitted a couple of days ago after presenting with toxic encephalopathy. She has a history of suicide attempt in the past with Xanax overdose. This time she was found by her unresponsive on the floor. Her bottle of Ativan which was recently filled was empty but had just been initially picked up about a day or 2 prior to presentation continue 60 1 mg tablets. She responded to Romazicon in the ER and also received charcoal. She was taken to the ICU for close monitoring of mental status but never required intubation. She is now more alert and downgraded to the medical floor. Also she was started on clindamycin in the ICU for suspected aspiration pneumonia after being noted to be spiking fevers. Continue clindamycin for suspected aspiration pneumonia. Patient admits to suicidal attempt lorazepam overdose. However urine drug screen is negative. I will repeat UDS. Currently she has not received any narcotics so far. Monitor mental status closely. Patient will be maintained on IVC Awaiting psych evaluation. Consult has already been ordered. Suicide precautions 01/10/2020 Patient is doing better today. Fevers have stopped. On clindamycin IV for aspiration pneumonia in ICU which I will change to oral. Day 2. Evaluated by psychiatry who recommends decreasing citalopram to 20 mg daily for 5 days then stopping and placing on Depakote 250 mg twice a day. I have entered these orders. Brain lesion on head CT is hyperdense 1.3 x 1.3 x 1.8 cm in left parietal without any vasogenic edema or mass-effect. I have discussed findings with radiologist informs me that it seems the lesion has been present since CT on 2013 at which time it was about 0.8 cm and the likely differential is a meningioma. It is likely that this lesion is not contributing to patient's mental status. However I will consult oncology to weigh in on this. Psych also recommends placement at inpatient psychiatric facility. Plan discussed with family we have updated about the brain CT findings. - Additional Information Resuscitation Status: Full Code Referrals: Dr Castano, Psychiatry [Other] - 01/27/20 Prescriptions: Buspirone HCl 1 tab PO BID 15 Days #30 tab Divalproex Sodium [Depakote ER 250 mg Tablet] 250 mg PO Q12 15 Days #30 tab.sr.24h Home Medications: Amlodipine Besylate [Norvasc 5 mg Tablet] 5 mg PO DAILY 02/05/16 Atorvastatin Calcium [Lipitor 20 mg Tablet] 20 mg PO QPM 02/05/16 Hydrochlorothiazide 12.5 mg PO QAM 02/05/16 Buspirone HCl 1 tab PO BID 15 Days #30 tab 01/19/20 Divalproex Sodium [Depakote ER 250 mg Tablet] 250 mg PO Q12 15 Days #30 tab.sr.24h 01/19/20 Hydrochlorothiazide [Hydrodiuril 12.5 mg Tablet] 12.5 mg PO DAILY tablet 01/19/20 Melatonin [Melatonin 5 mg Tablet] 5 mg PO QHS tablet 01/19/20 History of Present Illiness History of Present Illness: HANNA CHESTER is an 79-year-old female with a history of hypertension and multiple remote suicide attempts with both aspirin and Xanax. Patient now presents to ED after consuming 60-1mg pills of lorazepam. She was obtunded upon presentation to the ED, received Romazicon and charcoal. Patient became alert enough to communicate with the ED staff but shortly thereafter again became minimally responsive. She has been able to protect her airway and ABG shows only a very mild elevation in CO2 within the limits of normal. Patient is being admitted to the intensive care unit for monitoring given her poor mental status in the setting of benzodiazepine overdose. Hospital Course Hospital Course: Patient had a slightly extended hospital course. Part of this was due to treatment of infection, recovering from the respiratory failure and dealing with her psychiatric issues. In addition further assessment of a brain lesion was requested. She underwent successful revision of her medications. She was taken off of an atypical antipsychotic, and SSRI and benzodiazepine therapy. She is anxious to get home. She has an appointment with a new psychiatrist next week and she will be seeing her primary care provider as well. I did speak at length with patient's daughter. They will be taking more measures to ensure medication compliance and safety. At home health will be able to provide insight as well. She will also continue with physical therapy at home. I have also requested an aide and elementary school social worker. At some point it will be likely that she will not be able to remain in the home and at that point the family will consider different options for placement. Physical Exam Vital Signs: Temp Pulse Resp BP Pulse Ox 98.0 F 70 19 140/58 H 99 01/19/20 07:58 01/19/20 07:58 01/19/20 07:58 01/19/20 07:58 01/19/20 07:58 Intake & Output 01/18/20 01/19/20 01/20/20 06:59 06:59 06:59 Intake Total 1200 Balance 1200 Weight 63.8 kg 63.8 kg General appearance: PRESENT: no acute distress, cooperative Respiratory exam: PRESENT: clear to auscultation tiffanie, symmetrical, unlabored. ABSENT: rales, rhonchi, tachypnea, wheezes Cardiovascular exam: PRESENT: RRR, +S2 GI/Abdominal exam: PRESENT: normal bowel sounds, soft. ABSENT: tenderness Rectal exam: PRESENT: deferred Neurological exam: PRESENT: alert, awake Psychiatric exam: PRESENT: anxious - To return home Results Laboratory Results: WBC 9.5 10^3/uL (4.0-10.5) 01/10/20 05:51 RBC 3.82 10^6/uL (3.72-5.28) 01/10/20 05:51 Hgb 11.1 g/dL (12.0-15.5) L 01/10/20 05:51 Hct 32.0 % (36.0-47.0) L 01/10/20 05:51 MCV 84 fl (80-97) 01/10/20 05:51 MCH 29.1 pg (27.0-33.4) 01/10/20 05:51 MCHC 34.8 g/dL (32.0-36.0) 01/10/20 05:51 RDW 13.5 % (11.5-14.0) 01/10/20 05:51 Plt Count 180 10^3/uL (150-450) 01/10/20 05:51 Lymph % (Auto) 16.1 % (13-45) 01/07/20 18:58 [place] % (Auto) 11.0 % (3-13) 01/07/20 18:58 Eos % (Auto) 0.0 % (0-6) 01/07/20 18:58 Baso % (Auto) 0.5 % (0-2) 01/07/20 18:58 Absolute Neuts (auto) 4.5 10^3/uL (1.7-8.2) 01/07/20 18:58 Absolute Lymphs (auto) 1.0 10^3/uL (0.5-4.7) 01/07/20 18:58 Absolute Monos (auto) 0.7 10^3/uL (0.1-1.4) 01/07/20 18:58 Absolute Eos (auto) 0.0 10^3/uL (0.0-0.6) 01/07/20 18:58 Absolute Basos (auto) 0.0 10^3/uL (0.0-0.2) 01/07/20 18:58 Seg Neutrophils % 72.4 % (42-78) 01/07/20 18:58 Carbonic Acid 1.41 mmol/L (1.05-1.35) H 01/07/20 22:30 HCO3/H2CO3 Ratio 18:1 01/07/20 22:30 ABG pH 7.37 (7.35-7.45) 01/07/20 22:30 ABG pCO2 46.8 mmHg (35-45) H 01/07/20 22:30 ABG pO2 93.6 mmHg (80-100) 01/07/20 22:30 ABG HCO3 26.1 mmol/L (20-24) H 01/07/20 22:30 ABG Total CO2 27.6 mmol/L (21-25) H 01/07/20 22:30 ABG O2 Saturation 96.9 % (94-98) 01/07/20 22:30 ABG Base Excess 0.4 mmol/L 01/07/20 22:30 FiO2 4L 01/07/20 22:30 Sodium 138.3 mmol/L (137-145) 01/10/20 16:55 Potassium 4.6 mmol/L (3.6-5.0) D 01/10/20 16:55 Chloride 104 mmol/L (98-107) 01/10/20 16:55 Carbon Dioxide 29 mmol/L (22-30) 01/10/20 16:55 Anion Gap 5 (5-19) 01/10/20 16:55 BUN 16 mg/dL (7-20) 01/10/20 16:55 Creatinine 0.90 mg/dL (0.52-1.25) 01/10/20 16:55 Est GFR ( Amer) > 60 (>60) 01/10/20 16:55 Est GFR (MDRD) Non-Af > 60 (>60) 01/10/20 16:55 Glucose 121 mg/dL (75-110) H 01/10/20 16:55 Calcium 9.1 mg/dL (8.4-10.2) 01/10/20 16:55 Phosphorus 2.4 mg/dL (2.5-4.5) L 01/09/20 04:21 Magnesium 2.0 mg/dL (1.6-2.3) 01/10/20 05:51 Total Bilirubin 0.5 mg/dL (0.2-1.3) 01/07/20 18:58 Direct Bilirubin 0.0 mg/dL (0.0-0.4) 01/07/20 18:58 Neonat Total Bilirubin Not Reportable 01/07/20 18:58 Neonat Direct Bilirubin Not Reportable 01/07/20 18:58 Neonat Indirect Bili Not Reportable 01/07/20 18:58 AST 18 U/L (14-36) 01/07/20 18:58 ALT 17 U/L (<35) 01/07/20 18:58 Alkaline Phosphatase 37 U/L (38-126) L 01/07/20 18:58 Total Protein 5.8 g/dL (6.3-8.2) L 01/07/20 18:58 Albumin 3.3 g/dL (3.5-5.0) L 01/09/20 04:21 Urine Color YELLOW 01/07/20 21:00 Urine Appearance CLEAR 01/07/20 21:00 Urine pH 7.0 (5.0-9.0) 01/07/20 21:00 Ur Specific [place] 1.013 01/07/20 21:00 Urine Protein NEGATIVE mg/dL (NEGATIVE) 01/07/20 21:00 Urine Glucose (UA) NEGATIVE mg/dL (NEGATIVE) 01/07/20 21:00 Urine Ketones NEGATIVE mg/dL (NEGATIVE) 01/07/20 21:00 Urine Blood NEGATIVE (NEGATIVE) 01/07/20 21:00 Urine Nitrite NEGATIVE (NEGATIVE) 01/07/20 21:00 Urine Bilirubin NEGATIVE (NEGATIVE) 01/07/20 21:00 Urine Urobilinogen NEGATIVE mg/dL (<2.0) 01/07/20 21:00 Ur Leukocyte Esterase NEGATIVE (NEGATIVE) 01/07/20 21:00 Urine WBC (Auto) 0 /HPF 01/07/20 21:00 Urine RBC (Auto) 0 /HPF 01/07/20 21:00 U Hyaline Cast (Auto) 12 /LPF 01/07/20 21:00 Squamous Epi Cells Auto <1 /HPF 01/07/20 21:00 Urine Mucus (Auto) FEW /LPF 01/07/20 21:00 Urine Ascorbic Acid NEGATIVE (NEGATIVE) 01/07/20 21:00 Salicylates < 1.0 mg/dL (2.0-20.0) L 01/07/20 18:58 Urine Opiates Screen NEGATIVE 01/09/20 14:52 Urine Methadone Screen NEGATIVE 01/09/20 14:52 Acetaminophen < 10 ug/mL (10-30) L 01/07/20 18:58 Ur Barbiturates Screen NEGATIVE 01/09/20 14:52 Ur Phencyclidine Scrn NEGATIVE 01/09/20 14:52 Ur Amphetamines Screen NEGATIVE 01/09/20 14:52 U Benzodiazepines Scrn NEGATIVE 01/09/20 14:52 Urine Cocaine Screen NEGATIVE 01/09/20 14:52 U Marijuana (THC) Screen NEGATIVE 01/09/20 14:52 Serum Alcohol < 10 mg/dL (NONE DETECTED) 01/07/20 18:58 Impressions: KUB X-Ray 01/07/20 00:00 IMPRESSION: Enteric tube with the tip and proximal port projecting subdiaphragmatically within the left upper quadrant. Chest X-Ray 01/07/20 19:22 IMPRESSION: NG tube as described. Cannot exclude mild pulmonary edema. Chest X-Ray 01/08/20 00:00 IMPRESSION: Bibasilar airspace and pleural disease, similar to prior when accounting for lower lung volumes. Head CT 01/10/20 00:00 IMPRESSION: 1. Hyperdense lesion in the left parietal region along the falx cerebri measures 13 mm in transverse diameter, 13 mm in AP diameter and 18 mm in craniocaudal diameter ; the lesion has increased in size from 06/12/2014 and exerts no appreciable mass effect upon the adjacent brain parenchyma. The lesion is favored to represent a meningioma - consider correlation with a non- emergent contrast-enhanced MRI. 2. Sequela of chronic microvascular ischemia. EVIDENCE OF ACUTE STROKE: NO. Head MRI 01/18/20 00:00 IMPRESSION: Limitations due to motion and lack of contrast. Most likely benign meningioma. Six-month follow-up head CT with and without contrast is recom mended. EVIDENCE OF ACUTE STROKE: NO. Plan Health Concerns: Stricter medication management is required. Consistent psychiatric care patient as well. Plan of Treatment: Discharged home with home health. Establish with new psychiatrist. Continue to follow with primary care provider. Goals: Stable on medication regimen. She is currently in transition. She will be seeing Dr. Neumann next week. Time Spent: Greater than 30 Minutes Stroke Is this a Stroke Patient?: No Acute Heart Failure - Is this a Heart Failure Patient?: No
== END 2020-01-19 15:25 | disposition home health service (06) | DRG 917 ==
LOC: ER 18:52 → EH 21:56 → ICU 23:09 → 4N 01-09 16:38
PROVIDERS: ADMIT Anesthesiology; ATTEND Hospitalist
DX: T42.4X2A Poisoning by benzodiazepines, intentional self-harm, initial encounter (principal); G92 Toxic encephalopathy; J96.00 Acute respiratory failure, unspecified whether with hypoxia or hypercapnia; J69.0 Pneumonitis due to inhalation of food and vomit; R40.0 Somnolence; I10 Essential (primary) hypertension; D32.0 Benign neoplasm of cerebral meninges; F60.89 Other specific personality disorders; F32.9 Major depressive disorder, single episode, unspecified; Y92.018 Other place in single-family (private) house as the place of occurrence of the external cause
CPT/HCPCS: 36415; 51702; 70450; 70551; 71045; 74018; 80048; 80053; 80069; 80307; 81001; 82803; 83735; 84100; 85025; 85027; 87070; 87205; 93005; 93010; 96361; 96374; 96375; 99221; 99291; 99292; J1644; J2405; J3480; J3490; J7060; J7120